=== PATIENT | male | born 1975 | race Caucasian/White ===

== ENCOUNTER 2016-08-31 19:28 | Emergency (ER) | payer MEDICAID ==
[2016-08-31] MEDS ORDERED: NS 1,000 ML IV ONE ×2 (20:12→21:34)
[2016-08-31 20:41] LABS: ADD DIFF? NO; ADD MORPH? NO; ADD SCAN? NO; ATYPICAL LYMPHOCYTE FLAG 10 (0-99); FRAGMENT RBC FLAG 0 (0-99); HEMATOCRIT 41.5 % (40.0-51.0); HEMOGLOBIN 13.9 g/dL (13.7-17.5); LEFT SHIFT FLG 0 (0-99); LIPEMIA HEMOLYSIS FLAG 80 (0-99); MEAN CELL HEMOGLOBIN 33.6 pg (27.9-34.1); MEAN CELL HEMOGLOBIN CONCENTR. 33.5 g/dL (32.4-36.7); MEAN CELL VOLUME 100.2 fL (81.5-99.8); PLATELET CLUMPS FLAG 0 (0-99); PLATELET COUNT 146 10^3/uL (150-400); RED BLOOD CELL COUNT 4.14 10^6/uL (4.40-6.38); RED CELL DISTRIBUTION WIDTH 14.1 % (11.5-15.2)
[2016-08-31 20:50] LABS: ANION GAP 16 mEq/L (8-16); CALCIUM 9.2 mg/dL (8.5-10.4); CARBON DIOXIDE 28 mEq/l (22-31); CHLORIDE 99 mEq/L (97-110); CREATININE 0.7 mg/dL (0.7-1.3); GLOMERULAR FILTRATION RATE > 60; GLUCOSE 107 mg/dL (70-100); POTASSIUM 3.9 mEq/L (3.5-5.2); SALICYLATE < 1.0 mg/dL (2.0-20.0); SODIUM 143 mEq/L (134-144)
[2016-08-31 20:58] LABS: ETHANOL SERUM 362 mg/dL (0-10)
--- NOTE | 2016-08-31 21:00 | EDPHY ---
H & P Stated Complaint: M1, DRINKING "TO KILL THE PAIN" Source: Patient - Personal History Current Tetanus/Diphtheria Vaccine: Yes - Medical/Surgical History Hx Asthma: No Hx Chronic Respiratory Disease: No Hx Diabetes: No Hx Cardiac Disease: No Hx Renal Disease: No Hx Cirrhosis: No Hx Alcoholism: Yes Hx HIV/AIDS: No Hx Splenectomy or Spleen Trauma: No Other PMH: Alcoholism,ptsd, bipolar, pancreatitis, ETOH abuse. - Social History Smoking Status: Current every day smoker HPI/ROS: CHIEF COMPLAINT: Suicidal ideation, foot pain HISTORY OF PRESENT ILLNESS: patient admits to wanting to kill himself by rounding himself in the river. He primarily attributes this due to increasing depression because of the loss of his sister this week. He reports when he drown himself Or drink himself to the point that he is . a marketing pr intern visit was with him contacted police to do this. They evaluated him, completed an M1 form and transported here to the emergency department. His secondary complaint is bilateral foot pain over multiple toes. The patient is homeless and does not have anywhere to stay. Due to that he has poor hygiene and increasing pain and parts of his feet as well as numbness in his toes. He has no other associated complaints. He does not provide any modifying factors for this. Denies any previous suicide attempts were REVIEW OF SYSTEMS: Ten systems reviewed and are negative unless otherwise noted in the HPI EXAMINATION General Appearance: Alert, no distress, unkempt, poor hygiene Head: normocephalic, atraumatic Eyes: Pupils equal and round, no conjunctival pallor, but mild injection ENT, Mouth: Mucous membranes moist Neck: Normal inspection, supple, non-tender Respiratory: scattered rhonchi Cardiovascular: Regular rate and rhythm Gastrointestinal: Abdomen is soft and nontender Back: non-tender, no bony abnormalities Neurological: A&O, nonfocal, cranial nerves 2-12 grossly intact Skin: Warm and intact but unkempt. Feet are very dirty but no area of necrosis Extremities: range of motion is intact. No lesions. There are chronic changes as noted above. Decreased sensation in the toes but not the feet. Strength is 5/5 in both ankles. Psychiatric: Mood and affect normal DIFFERENTIAL DIAGNOSES: Suicidal ideation, psychosis, but major depression, acute depression with episode, cellulitis, frostbite MDM: 02:00 patient is homeless and has experienced a loss earlier this week with a family member. This has likely presumed into an episode of suicidal ideation. He did admit to wanting to kill himself by Drowning. is not needed attempted insert today. He has been very calm and cooperative during his stay here in the emergency department. His labs are within acceptable limits. Upon initial evaluation, I did feel that was a possible area of necrosis of the feet. However after very good cleaning of the area, this tissue was found to be debris. His feet are very well in appearance following the cleansing. There is no necrosis. his labs are acceptable for clearance, but he has yet to be evaluated by mental health at this time. Thus at this time the care the patient will be assumed by Dr. Trujillo. please see her note for final disposition and care SUPERVISION:Patient was evaluated in conjunction with the supervising physician. Please see their note for details. (Omer Ellis) Constitutional: Initial Vital Signs Temperature (C) 97.2 F 08/31/16 19:32 Heart Rate 104 H 08/31/16 19:32 Respiratory Rate 18 08/31/16 19:32 Blood Pressure 118/83 H 08/31/16 19:32 O2 Sat (%) 95 08/31/16 19:32 O2 Delivery Mode Room Air Allergies/Adverse Reactions: No Known Allergies Allergy (Unverified 08/31/16 19:31) Home Medications: Medication Instructions Recorded Ibuprofen [Motrin (*)] 200 mg PO Q8 #0 tab 08/01/16 Ativan 08/31/16 Medical Decision Making ED Course/Re-evaluation: 6:50 a.m.- The patient has remained stable during my shift. He did receive 1 mg of Ativan for mild tremor. He is currently awaiting psychiatric evaluation. (Steffany Trujillo) 700: The patient is signed out to me at change of shift by Dr. Trujillo. The patient is stable at sign out. I rechecked the patient while here. Patient was stable during his stay. 1035: I discussed the case with Psychiatric Services. They feel the patient is safe for discharge. He is not endorsing suicidal ideation at this time. Dr. Weaver recommends I left a hold. Patient was given warnings prior to leaving. He will return with worsening symptoms. (Sovndal,Zoë S) - Data Points Laboratory Results: Laboratory Results 08/31/16 20:28 08/31/16 20:28 Medications Given: Discontinued Medications Chlordiazepoxide HCl (Librium) 25 mg PO EDNOW ONE Stop: 09/01/16 08:40 Last Admin: 09/01/16 08:45 Dose: 25 mg Sodium Chloride (Ns) 1,000 mls @ 0 mls/hr IV ONCE ONE PRN Reason: Wide Open Stop: 08/31/16 20:13 Last Admin: 08/31/16 20:37 Dose: 1,000 mls Sodium Chloride (Ns) 1,000 mls @ 0 mls/hr IV ONCE ONE PRN Reason: Wide Open Stop: 08/31/16 21:35 Last Admin: 08/31/16 23:05 Dose: 1,000 mls Lorazepam (Ativan) 1 mg PO EDNOW ONE Stop: 09/01/16 06:14 Last Admin: 09/01/16 06:20 Dose: 1 mg Departure - Departure Disposition: Home, Routine, Self-Care Clinical Impression: Suicidal ideation, Frostbite of both great toes, Alcoholism Condition: Good Instructions: Depression (ED), Alcohol Intoxication (ED), Suicide Prevention for Adults (ED) Additional Instructions: FOLLOWUP PER MH'S DISCUSSION. IF YOU HAVE ANY THOUGHTS OF HURTING/KILLING YOURSELF PLEASE COME BACK TO THE EMERGENCY DEPARTMENT IMMEDIATELY OR SEEK HELP ELSEWHERE. Referrals: [facility] [Outside] - As per Instructions
[2016-09-01] MEDS ORDERED: LORazepam 1 MG TAB PO ONE (06:13)
[2016-09-01 08:31] VITALS: RESP 14; TEMP 98.2; O2SAT 94
[2016-09-01] MEDS ORDERED: chlordiazePOXIDE 25 MG CAP PO ONE (08:39)
[2016-09-01 11:01] VITALS: BP 126/89; PULSE 96
== END 2016-09-01 11:00 | disposition home or self-care (01) ==
DX: R45.851 Suicidal ideations (principal); T33.831A Superficial frostbite of right toe(s), initial encounter; T33.832A Superficial frostbite of left toe(s), initial encounter; F10.20 Alcohol dependence, uncomplicated; F17.200 Nicotine dependence, unspecified, uncomplicated; X58.XXXA Exposure to other specified factors, initial encounter
CPT/HCPCS: 80305; G0480

== ENCOUNTER 2016-09-18 04:15 | Emergency (ER) | payer MEDICAID ==
[2016-09-18] MEDS ORDERED: ONDANSETRON 4 MG/2 ML VIAL IVP ONE (04:21)
[2016-09-18] MEDS ORDERED: NS 1,000 ML IV ONE (04:21)
[2016-09-18] MEDS ORDERED: LORazepam 2 MG/ML INJ IVP ONE (04:22)
--- NOTE | 2016-09-18 04:28 | EDPHY ---
HPI/HX/ROS/PE/MDM Narrative: Chief complaint: Chest pain/abdominal pain HPI: 40-year-old homeless male with a history of chronic alcohol abuse and pancreatitis in the past woke at 3 o'clock this morning in an alleyway with upper abdominal lower left chest pain. Patient states that he has had a cough productive of yellowish sputum for the last 2 weeks. States that his pain is a little bit worse with cough and breathing. No fevers or chills. Some nausea no vomiting. No diarrhea. Denies dark black bowel movements that he is aware of. Pain has been constant. He does have a history of alcohol withdrawal seizures, states his last drink was at 530 yesterday afternoon. His pain is described as a constant burning, 02/24. There are no aggravating or alleviating factors. Does not smoke. Denies family history of coronary disease. ROS: 10 point Review of Systems is negative except as noted in the HPI. Physical exam: Gen: Awake, Alert, very tremulous HEENT: Nose: no rhinorrhea Eyes: PERRLA, EOMI Mouth: Moist mucosa Neck: Supple, no JVD Chest: nontender, lungs clear to auscultation Heart: S1, S2 normal, no murmur Abd: epigastric and left upper quadrant tenderness to palpation reproducing presenting complaint, voluntary guarding Back: no CVA tenderness, no midline tenderness Ext: no edema, non-tender Skin: no rash Neuro: CN II-XII intact, Sensation grossly intact, Strength 5/5 in bilateral upper and lower extremities ED Course: 40-year-old male with lower chest and upper abdominal pain with tenderness. History of pancreatitis. Oxygen saturations are 100%. Lung sounds are clear. Will check a ECG, troponin, lipase, LFTs, and chemistry. Will treat with Ativan 2 mg now, 4 mg of morphine, Zofran and IV fluids. EC sinus rhythm with a rate of 72 there is artifact secondary to his tremors. No acute ST or T-wave changes. Interpretation normal ECG. Patient is improved after IV hydration and medications. His ECG is normal. Re- examination shows upper abdominal tenderness. His lipase is normal. His CBC is normal. He has mild elevation in his transaminases which is consistent with his chronic alcohol ingestion. He has gotten relief with a GI cocktail. Symptoms are more consistent with alcoholic gastritis. Will discharge him with prescription for a PPI and referral to [facility] for follow-up. He has been encouraged to decrease his alcohol consumption. - Data Points Laboratory Results: Laboratory Results 09/18/16 04:35 09/18/16 04:35 09/18/16 04:35 WBC 3.99 10^3/uL (3.80-9.50) RBC 3.77 L 10^6/uL (4.40-6.38) Hgb 12.8 L g/dL (13.7-17.5) Hct 36.5 L % (40.0-51.0) MCV 96.8 fL (81.5-99.8) MCH 34.0 pg (27.9-34.1) MCHC 35.1 g/dL (32.4-36.7) RDW 15.0 % (11.5-15.2) Plt Count 54 L 10^3/uL (150-400) MPV 11.1 fL (8.7-11.7) Neut % (Auto) 33.0 L % (39.3-74.2) Lymph % (Auto) 57.9 H % (15.0-45.0) [place] % (Auto) 7.3 % (4.5-13.0) Eos % (Auto) 1.0 % (0.6-7.6) Baso % (Auto) 0.8 % (0.3-1.7) Nucleat RBC Rel Count 0.0 % (0.0-0.2) Absolute Neuts (auto) 1.32 L 10^3/uL (1.70-6.50) Absolute Lymphs (auto) 2.31 10^3/uL (1.00-3.00) Absolute Monos (auto) 0.29 L 10^3/uL (0.30-0.80) Absolute Eos (auto) 0.04 10^3/uL (0.03-0.40) Absolute Basos (auto) 0.03 10^3/uL (0.02-0.10) Absolute Nucleated RBC 0.00 10^3/uL (0-0.01) Immature Gran % 0.0 % (0.0-1.1) Immature Gran # 0.00 10^3/uL (0.00-0.10) Sodium 142 mEq/L (134-144) Potassium 3.4 L mEq/L (3.5-5.2) Chloride 101 mEq/L (97-110) Carbon Dioxide 23 mEq/l (22-31) Anion Gap 18 mEq/L (8-16) BUN 9 mg/dL (7-23) Creatinine 0.6 L mg/dL (0.7-1.3) Estimated GFR > 60 Glucose 74 mg/dL (70-100) Calcium 8.7 mg/dL (8.5-10.4) Total Bilirubin 1.8 H mg/dL (0.1-1.4) Conjugated Bilirubin 0.8 H mg/dL (0.0-0.5) Unconjugated Bilirubin 1.0 mg/dL (0.0-1.1) AST 249 H IU/L (17-59) ALT 94 H IU/L (21-72) Alkaline Phosphatase 174 H IU/L (38-126) Troponin I < 0.012 ng/mL (0-0.034) Total Protein 7.4 g/dL (6.3-8.2) Albumin 3.8 g/dL (3.5-5.0) Lipase 64.0 IU/L (23-300) Medications Given: Discontinued Medications Sodium Chloride (Ns) 1,000 mls @ 0 mls/hr IV ONCE ONE PRN Reason: Wide Open Stop: 09/18/16 04:22 Last Admin: 09/18/16 04:30 Dose: 1,000 mls Lorazepam (Ativan Injection) 2 mg IVP EDNOW ONE Stop: 09/18/16 04:23 Last Admin: 09/18/16 04:30 Dose: 2 mg Morphine Sulfate (Morphine) 4 mg IVP ONCE ONE Stop: 09/18/16 04:22 Last Admin: 09/18/16 04:30 Dose: 4 mg Ondansetron HCl (Zofran) 4 mg IVP EDNOW ONE Stop: 09/18/16 04:22 Last Admin: 09/18/16 04:54 Dose: 4 mg General Time Seen by Provider: 09/18/16 04:23 Initial Vital Signs: Initial Vital Signs Temperature (C) 36.7 C 09/18/16 04:46 Heart Rate 78 09/18/16 04:46 Respiratory Rate 20 09/18/16 04:46 Blood Pressure 132/73 H 09/18/16 04:46 O2 Sat (%) 100 09/18/16 04:46 O2 Delivery Mode Room Air O2 (L/minute) 2 Allergies/Adverse Reactions: No Known Allergies Allergy (Unverified 09/18/16 04:46) Home Medications: Medication Instructions Recorded Omeprazole 20 mg PO DAILY #30 capsule. 09/18/16 Departure - Departure Disposition: Home, Routine, Self-Care Clinical Impression: Gastritis Condition: Good Instructions: Gastritis (ED) Additional Instructions: Please try to decrease your alcohol consumption. Follow up with [facility] in 2-3 days for re-evaluation. Return to the emergency depart for increasing pain, nausea, vomiting, shortness of breath, fevers, chills, or any other concerns. Referrals: NONE *PRIMARY CARE P,. [Primary Care Provider] - As per Instructions [facility] [Outside] - As per Instructions Prescriptions: Omeprazole 20 mg PO DAILY #30 capsule.
[2016-09-18 04:46] LABS: ADD DIFF? NO; ADD MORPH? NO; ADD SCAN? NO; ATYPICAL LYMPHOCYTE FLAG 10 (0-99); FRAGMENT RBC FLAG 0 (0-99); HEMATOCRIT 36.5 % (40.0-51.0); HEMOGLOBIN 12.8 g/dL (13.7-17.5); LEFT SHIFT FLG 0 (0-99); LIPEMIA HEMOLYSIS FLAG 90 (0-99); MEAN CELL HEMOGLOBIN CONCENTR. 35.1 g/dL (32.4-36.7); MEAN CELL VOLUME 96.8 fL (81.5-99.8); MEAN PLATELET VOLUME 11.1 fL (8.7-11.7); PLATELET CLUMPS FLAG 10 (0-99); PLATELET COUNT 54 10^3/uL (150-400); RED BLOOD CELL COUNT 3.77 10^6/uL (4.40-6.38)
--- NOTE | 2016-09-18 04:51 | CPEKG ---
Heart Rate: 72 RR Interval: 833 QRSD Interval: 96 QT Interval: 428 QTC Interval: 469 QRS [place]: 54 T Wave [place]: 46 EKG Severity - OTHERWISE NORMAL ECG - EKG Impression: SINUS RHYTHM EKG Impression: artifact present Electronically Signed By: Jony Corcoran 18-Sep-2016 05:47:16
[2016-09-18 04:53] VITALS: O2SAT 96
[2016-09-18 04:58] LABS: ALANINE AMINOTRANSFERASE 94 IU/L (21-72); ALBUMIN 3.8 g/dL (3.5-5.0); ALKALINE PHOSPHATASE 174 IU/L (38-126); ANION GAP 18 mEq/L (8-16); ASPARTATE AMINOTRANSFERASE 249 IU/L (17-59); BILIRUBIN,TOTAL 1.8 mg/dL (0.1-1.4); BILIRUBIN-CONJUGATED 0.8 mg/dL (0.0-0.5); CALCIUM 8.7 mg/dL (8.5-10.4); CARBON DIOXIDE 23 mEq/l (22-31); CHLORIDE 101 mEq/L (97-110); CREATININE 0.6 mg/dL (0.7-1.3); GLOMERULAR FILTRATION RATE > 60; GLUCOSE 74 mg/dL (70-100); POTASSIUM 3.4 mEq/L (3.5-5.2); SODIUM 142 mEq/L (134-144); TOTAL PROTEIN 7.4 g/dL (6.3-8.2)
[2016-09-18] MEDS ORDERED: MAALOX/LIDO/HYOSC GI COCKTAIL 55 ML BOTTLE PO ONE (05:01)
[2016-09-18] MEDS ORDERED: MAALOX/LIDO/HYOSC GI COCKTAIL 55 ML BOTTLE ONE (05:02)
[2016-09-18 05:09] LABS: TROPONIN I < 0.012 ng/mL (0-0.034)
[2016-09-18] MEDS ORDERED: PANTOPRAZOLE SODIUM 40 MG TAB PO ONE (05:18)
[2016-09-18 05:46] VITALS: BP 118/67; PULSE 87; RESP 16; TEMP 98.6
== END 2016-09-18 06:14 | disposition home or self-care (01) ==
LOC: EDUNIT#
DX: K29.70 Gastritis, unspecified, without bleeding (principal)
CPT/HCPCS: 96374; J2405

== ENCOUNTER 2016-09-23 16:21 | Inpatient (IN) | payer MEDICAID ==
[2016-09-23] MEDS ORDERED: ACETAMINOPHEN 325 MG TAB PO ONE (16:40)
--- NOTE | 2016-09-23 16:41 | EDPHY ---
H & P Time Seen by Provider: 09/23/16 17:00 HPI/ROS: HPI: 40-year-old male well known to the emergency department presents to emergency department on an M1 hold brought in by PD with chief concern suicidal ideation. Has been feeling suicidal for 2 days, stating he will borrow a friend 's knife and slit his wrist. He denies homicidal ideation. Denies visual or auditory hallucination. Denies illicit drug use. No fever, chills, dizziness, headache, shortness of breath, chest pain, abdominal pain, nausea, vomiting, diarrhea. Past medical history is notable for pancreatitis, alcoholic hepatitis , alcohol abuse, PTSD, depression, thrombocytopenia, microcytic anemia. Last pint this morning. He is homeless. ROS:10 point review of systems is negative other than as stated in HPI Past Medical/Surgical History: See HPI Social History: Homeless Smoking Status: Current every day smoker Physical Exam: Vital signs stable, reviewed by me General: Awake, alert, calm, cooperative. No acute distress. Head: Normalocephalic. Atraumatic. EENT: PERRLA. EOMI. No pallor or injection. Anicteric. No nystagmus. No injection. TMs intact bilaterally with normal landmarks. No rhinnorhea, nasal passages clear. Oropharynx without redness, exudates, or lesions. Tonsils 2+ bilaterally, no exudates. Neck: Supple, nontender. No lymphadenopathy. Full range of motion. No meningismus. Respiratory: Breathing unlabored. Breath sounds equal bilaterally and clear to auscultation. No adventitious sounds. CV: Chest nontender, atraumatic. Heart rate regular. No murmur, distal pulses 2+ bilaterally. Brisk cap refill all extremities. GI: Abdomen soft, mild right mid abdominal pain. Hepatomegaly. Bowel sounds normoactive and positive x4 quadrants. Neuro: Alert. Oriented x 3. Speech clear. Nonfocal cranial nerves throughout. Sensation intact all extremities. Skin: Skin warm, dry, intact. No rashes, abrasions, or lacerations. Skin turgor normal. Extremities: Full range of motion in all 4 extremities. Strength 5+ all extremities. Mental status: Disheveled, dirty, unkempt Constitutional: Initial Vital Signs Temperature (C) 36.8 C 09/23/16 16:25 Heart Rate 78 09/23/16 16:25 Respiratory Rate 18 09/23/16 16:25 Blood Pressure 130/87 H 09/23/16 16:25 O2 Sat (%) 99 09/23/16 16:25 O2 Delivery Mode Room Air Allergies/Adverse Reactions: No Known Allergies Allergy (Unverified 09/18/16 04:46) Home Medications: Medication Instructions Recorded NK [No Known Home Meds] 09/23/16 Medical Decision Making ED Course/Re-evaluation: Homeless 40-year-old male well known to the emergency department presents with suicidal ideation. States he has had a plan for 2 days to borrow his friends knife and slashed his wrist. Vitals are stable. Last pt this morning. Presently calm and with CIWA of 0. 2100: Breathalyzer 212. Repeat basic metabolic panel after 2 L normal saline shows a potassium 3.0, CO2 16, anion gap 20. Patient given 20 mEq p.o. K. 3rd L normal saline hung. Will recheck metabolic panel afterward. AST 512, ALT 155, Alk Phos 163, lipase 60. Patient will be admitted to the hospitalist service, report given to dr. Souza. CIWA 7. 1 mg IV Ativan given. EKG shows sinus rhythm, rate 93, normal intervals, no axis deviation, no evidence of ischemia. Differential Diagnosis: Differential includes but is not limited to functional and major depression, situational depression, medication side-effect, anxiety, schizophrenia, bipolar , drug or alcohol related, acute psychosis, metabolic derangement, infection - Data Points Laboratory Results: Laboratory Results 09/23/16 16:30 09/23/16 21:13 09/23/16 09/23/16 09/23/16 21:13 17:54 16:30 WBC 5.74 10^3/uL (3.80-9.50) RBC 4.07 L 10^6/uL (4.40-6.38) Hgb 14.0 g/dL (13.7-17.5) Hct 40.7 % (40.0-51.0) MCV 100.0 H fL (81.5-99.8) MCH 34.4 H pg (27.9-34.1) MCHC 34.4 g/dL (32.4-36.7) RDW 16.6 H % (11.5-15.2) Plt Count 68 L 10^3/uL (150-400) MPV 10.2 fL (8.7-11.7) Neut % (Auto) 38.0 L % (39.3-74.2) Lymph % (Auto) 51.2 H % (15.0-45.0) [place] % (Auto) 9.6 % (4.5-13.0) Eos % (Auto) 0.2 L % (0.6-7.6) Baso % (Auto) 0.7 % (0.3-1.7) Nucleat RBC Rel Count 0.3 H % (0.0-0.2) Absolute Neuts (auto) 2.18 10^3/uL (1.70-6.50) Absolute Lymphs (auto) 2.94 10^3/uL (1.00-3.00) Absolute Monos (auto) 0.55 10^3/uL (0.30-0.80) Absolute Eos (auto) 0.01 L 10^3/uL (0.03-0.40) Absolute Basos (auto) 0.04 10^3/uL (0.02-0.10) Absolute Nucleated RBC 0.02 H 10^3/uL (0-0.01) Immature Gran % 0.3 % (0.0-1.1) Immature Gran # 0.02 10^3/uL (0.00-0.10) Sodium 135 mEq/L 135 mEq/L 141 mEq/L (134-144) (134-144) (134-144) Potassium 3.1 L mEq/L 3.0 L mEq/L 3.2 L mEq/L (3.5-5.2) (3.5-5.2) (3.5-5.2) Chloride 99 mEq/L 99 mEq/L 98 mEq/L (97-110) (97-110) (97-110) Carbon Dioxide 16 L mEq/l 16 L mEq/l 12 L mEq/l (22-31) (22-31) (22-31) Anion Gap 20 H mEq/L 20 H mEq/L 31 H mEq/L (8-16) (8-16) (8-16) BUN 7 mg/dL 7 mg/dL 8 mg/dL (7-23) (7-23) (7-23) Creatinine 0.7 mg/dL 0.7 mg/dL 0.8 mg/dL (0.7-1.3) (0.7-1.3) (0.7-1.3) Estimated GFR > 60 > 60 > 60 Glucose 172 H mg/dL 173 H D mg/dL 47 L mg/dL (70-100) (70-100) (70-100) Calcium 7.5 L mg/dL 7.4 L mg/dL 8.5 mg/dL (8.5-10.4) (8.5-10.4) (8.5-10.4) Magnesium Total Bilirubin 1.3 mg/dL (0.1-1.4) Conjugated Bilirubin Unconjugated Bilirubin AST 512 H IU/L (17-59) ALT 155 H IU/L (21-72) Alkaline Phosphatase 163 H IU/L (38-126) Total Protein 5.9 L g/dL (6.3-8.2) Albumin 2.8 L g/dL (3.5-5.0) Lipase Urine Opiates Screen NEGATIVE (NEGATIVE) Urine Barbiturates NEGATIVE (NEGATIVE) Ur Phencyclidine Scrn NEGATIVE (NEGATIVE) Ur Amphetamine Screen NEGATIVE (NEGATIVE) U Benzodiazepines Scrn NON-NEGATIVE H (NEGATIVE) Urine Cocaine Screen NEGATIVE (NEGATIVE) U Marijuana (THC) Screen NON-NEGATIVE H (NEGATIVE) Ethyl Alcohol 307 H mg/dL (0-10) 09/23/16 16:20 WBC RBC Hgb Hct MCV MCH MCHC RDW Plt Count MPV Neut % (Auto) Lymph % (Auto) [place] % (Auto) Eos % (Auto) Baso % (Auto) Nucleat RBC Rel Count Absolute Neuts (auto) Absolute Lymphs (auto) Absolute Monos (auto) Absolute Eos (auto) Absolute Basos (auto) Absolute Nucleated RBC Immature Gran % Immature Gran # Sodium Potassium Chloride Carbon Dioxide Anion Gap BUN Creatinine Estimated GFR Glucose Calcium Magnesium 1.6 mg/dL (1.6-2.3) Total Bilirubin 1.9 H mg/dL (0.1-1.4) Conjugated Bilirubin 1.3 H mg/dL (0.0-0.5) Unconjugated Bilirubin 0.6 mg/dL (0.0-1.1) AST 600 H IU/L (17-59) ALT 192 H IU/L (21-72) Alkaline Phosphatase 246 H IU/L (38-126) Total Protein 7.3 g/dL (6.3-8.2) Albumin 4.0 g/dL (3.5-5.0) Lipase 60.0 IU/L (23-300) Urine Opiates Screen Urine Barbiturates Ur Phencyclidine Scrn Ur Amphetamine Screen U Benzodiazepines Scrn Urine Cocaine Screen U Marijuana (THC) Screen Ethyl Alcohol Medications Given: Discontinued Medications Acetaminophen (Tylenol) 1,000 mg PO EDNOW ONE Stop: 09/23/16 16:41 Last Admin: 09/23/16 16:53 Dose: Not Given Sodium Chloride (Ns) 1,000 mls @ 0 mls/hr IV ONCE ONE PRN Reason: Wide Open Stop: 09/23/16 17:35 Last Admin: 09/23/16 18:59 Dose: 1,000 mls Sodium Chloride (Ns) 1,000 mls @ 0 mls/hr IV ONCE ONE PRN Reason: Wide Open Stop: 09/23/16 17:54 Last Admin: 09/23/16 17:54 Dose: 1,000 mls Sodium Chloride (Ns) 1,000 mls @ 0 mls/hr IV ONCE ONE PRN Reason: Wide Open Stop: 09/23/16 21:09 Last Admin: 09/23/16 21:15 Dose: 1,000 mls Sodium Chloride (Ns) 1,000 mls @ 0 mls/hr IV ONCE ONE PRN Reason: Wide Open Stop: 09/23/16 21:31 Last Admin: 09/24/16 00:00 Dose: Not Given Lorazepam (Ativan Injection) 1 mg IVP EDNOW ONE Stop: 09/23/16 21:31 Last Admin: 09/23/16 21:42 Dose: 1 mg Lorazepam (Ativan Injection) 1 mg IVP EDNOW ONE Stop: 09/23/16 21:41 Last Admin: 09/23/16 22:59 Dose: Not Given Departure - Departure Disposition: [facility] Clinical Impression: Suicidal ideation, Alcoholic hepatitis, Alcoholic ketoacidosis, Alcohol withdrawal
[2016-09-23 17:00] LABS: % IMMATURE GRANULYOCYTES 0.3 % (0.0-1.1); ABSOLUTE IMMATURE GRANULOCYTES 0.02 10^3/uL (0.00-0.10); ABSOLUTE NRBC COUNT 0.02 10^3/uL (0-0.01); ADD DIFF? NO; ADD MORPH? NO; ADD SCAN? NO; ATYPICAL LYMPHOCYTE FLAG 30 (0-99); FRAGMENT RBC FLAG 0 (0-99); HEMATOCRIT 40.7 % (40.0-51.0); LEFT SHIFT FLG 0 (0-99); LIPEMIA HEMOLYSIS FLAG 90 (0-99); MEAN CELL HEMOGLOBIN 34.4 pg (27.9-34.1); MEAN CELL HEMOGLOBIN CONCENTR. 34.4 g/dL (32.4-36.7); MEAN PLATELET VOLUME 10.2 fL (8.7-11.7); NRBC-AUTO% 0.3 % (0.0-0.2); PLATELET CLUMPS FLAG 10 (0-99); PLATELET COUNT 68 10^3/uL (150-400); RED BLOOD CELL COUNT 4.07 10^6/uL (4.40-6.38); RED CELL DISTRIBUTION WIDTH 16.6 % (11.5-15.2)
[2016-09-23 17:21] LABS: ANION GAP 31 mEq/L (8-16); CALCIUM 8.5 mg/dL (8.5-10.4); CARBON DIOXIDE 12 mEq/l (22-31); CHLORIDE 98 mEq/L (97-110); CREATININE 0.8 mg/dL (0.7-1.3); GLOMERULAR FILTRATION RATE > 60; GLUCOSE 47 mg/dL (70-100); POTASSIUM 3.2 mEq/L (3.5-5.2); SODIUM 141 mEq/L (134-144)
[2016-09-23] MEDS ORDERED: NS 1,000 ML IV ONE ×4 (17:34→21:30)
[2016-09-23 17:48] LABS: ETHANOL SERUM 307 mg/dL (0-10)
[2016-09-23] MEDS: POTASSIUM CL 20 MEQ TAB PO SCH (18:59)
[2016-09-23 20:55] LABS: ANION GAP 20 mEq/L (8-16); CALCIUM 7.4 mg/dL (8.5-10.4); CARBON DIOXIDE 16 mEq/l (22-31); CHLORIDE 99 mEq/L (97-110); CREATININE 0.7 mg/dL (0.7-1.3); GLOMERULAR FILTRATION RATE > 60; GLUCOSE 173 mg/dL (70-100); SODIUM 135 mEq/L (134-144)
[2016-09-23 21:27] LABS: ALANINE AMINOTRANSFERASE 155 IU/L (21-72); ALBUMIN 2.8 g/dL (3.5-5.0); ALKALINE PHOSPHATASE 163 IU/L (38-126); ANION GAP 20 mEq/L (8-16); ASPARTATE AMINOTRANSFERASE 512 IU/L (17-59); BILIRUBIN,TOTAL 1.3 mg/dL (0.1-1.4); CALCIUM 7.5 mg/dL (8.5-10.4); CARBON DIOXIDE 16 mEq/l (22-31); CHLORIDE 99 mEq/L (97-110); CREATININE 0.7 mg/dL (0.7-1.3); GLOMERULAR FILTRATION RATE > 60; GLUCOSE 172 mg/dL (70-100); POTASSIUM 3.1 mEq/L (3.5-5.2); SODIUM 135 mEq/L (134-144); TOTAL PROTEIN 5.9 g/dL (6.3-8.2)
[2016-09-23] MEDS ORDERED: LORazepam 2 MG/ML INJ IVP ONE ×2 (21:30→21:40)
[2016-09-23 21:44] LABS: BILIRUBIN,TOTAL 1.9 mg/dL (0.1-1.4); BILIRUBIN-CONJUGATED 1.3 mg/dL (0.0-0.5); BILIRUBIN-UNCONJUGATED 0.6 mg/dL (0.0-1.1); TOTAL PROTEIN 7.3 g/dL (6.3-8.2)
--- NOTE | 2016-09-23 21:45 | CPEKG ---
Heart Rate: 93 RR Interval: 645 P-R Interval: 144 QRSD Interval: 90 QT Interval: 356 QTC Interval: 443 P [place]: 42 QRS [place]: 24 T Wave [place]: 45 EKG Severity - NORMAL ECG - EKG Impression: SINUS RHYTHM Electronically Signed By: Saige Ramires 23-Sep-2016 22:30:27
[2016-09-23] MEDS ORDERED: ONDANSETRON 4 MG/2 ML VIAL IVP PRN (22:44)
[2016-09-23] MEDS ORDERED: ONDANSETRON DISINTEGRATING 4 MG TAB PO PRN (22:44)
[2016-09-23] MEDS ORDERED: MAG HYDROX/AL HYDROX/SIMETH 30 ML UDCUP PO PRN (22:47)
--- NOTE | 2016-09-23 23:02 | PDGENHP ---
History and Physical - Chief Complaint suicidal ideations - History of Present Illness Patient is a 40 yo homeless male with chronic alcohol use, chronic tobacco use, h/o withdrawal seizures, chronic pancreatitis and major depressive disorder who presents to the ED with cc of suicidal ideations. Patient states these thoughts have been present for some time, but have acutely worsened over the past 2 weeks and at this point he describes a plan, although has not acted on this yet. He was brought into the ED by the [facility] for further evaluation. In addition to the above, patient also drinks about 2-4 pints of whiskey daily, only had about 1 pint this morning prior to arrival. He does report some moderate abdominal pain, located band-like across his abdomen, associated with some nausea, but denies any recent vomiting or diarrhea. He also has a cough productive of thick green sputum, present for approximately 2 weeks, not associated with fever, chills or shortness of breath. On arrival to the ED, patient was afebrile and hemodynamically stable. Labs were drawn and revealed thrombocytopenia, electrolyte derangements and elevated LFTs. Given these medical abnormalities, patient was admitted to the hospitalist service for further evaluation and management, with psychiatry to evaluated the patient once he's medically cleared. History Information - Allergies/Home Medication List Allergies/Adverse Reactions: No Known Allergies Allergy (Unverified 09/18/16 04:46) Home Medications: NK [No Known Home Meds] 09/23/16 [Last Taken Unknown] I have personally reviewed and updated: family history, medical history, social history, surgical history - Past Medical History Additional medical history: Alcoholism with history alcohol withdrawal, major depressive disorder, hand cellulitis and abscess April 2016, h/o acute and chronic pancreatitis - Surgical History Additional surgical history: Incision and drainage of the hand in April 2016 - Family History Additional family history: Patient's reports he does not know his family history as he is not emotionally close with any of them - Social History Smoking Status: Current every day smoker (1-2PPD x 30 years) Alcohol Use: Heavy (about 4 pints of whiskey daily) Drug Use: Marijuana, Other (LSD, mushrooms, denies any IV drug use) Additional social history: Homeless Review of Systems ROS: 10pt was reviewed & negative except for what was stated in HPI & below Physical Exam Temp Pulse Resp BP Pulse Ox 36.8 C 78 18 130/87 H 99 09/23/16 16:25 09/23/16 16:25 09/23/16 16:25 09/23/16 16:25 09/23/16 16:25 Constitutional: not in pain, chronically ill appearing, unkempt Eyes: PERRL, anicteric sclera, EOMI, scleral injection Ears, Nose, Mouth, Throat: moist mucous membranes, hearing normal, ears appear normal, no oral mucosal ulcers Cardiovascular: no murmur, rub, or gallop, pulses symmetric bilaterally, tachycardia, No JVD, No edema Peripheral Pulses: 2+: dorsalis-pedis (R), dorsalis-pedis (L) Respiratory: no respiratory distress, no rales or rhonchi, clear to auscultation Gastrointestinal: normoactive bowel sounds, no palpable masses, tenderness (LUQ/ epigastric tenderness to palpation), No hepatosplenomegally, No guarding, No rebound, No distension Genitourinary: no bladder fullness, no bladder tenderness Skin: warm, normal color, no rashes or abrasions, no fluctuance, No mottled Musculoskeletal: full muscle strength, no muscle tenderness, normal joint ROM, no joint effusions Neurologic: AAOx3, sensation intact bilaterally, CN II-XII Intact, other ( distal fine tremor present), No weakness, No numbness Psychiatric: interacting appropriately, not encephalopathic, thought process linear, depressed, suicidal ideation Lab Data & Imaging Review 09/23/16 16:30 09/23/16 21:13 WBC 5.74 10^3/uL (3.80-9.50) 09/23/16 16:30 RBC 4.07 10^6/uL (4.40-6.38) L 09/23/16 16:30 Hgb 14.0 g/dL (13.7-17.5) 09/23/16 16:30 Hct 40.7 % (40.0-51.0) 09/23/16 16:30 MCV 100.0 fL (81.5-99.8) H 09/23/16 16:30 MCH 34.4 pg (27.9-34.1) H 09/23/16 16:30 MCHC 34.4 g/dL (32.4-36.7) 09/23/16 16:30 RDW 16.6 % (11.5-15.2) H 09/23/16 16:30 Plt Count 68 10^3/uL (150-400) L 09/23/16 16:30 MPV 10.2 fL (8.7-11.7) 09/23/16 16:30 Neut % (Auto) 38.0 % (39.3-74.2) L 09/23/16 16:30 Lymph % (Auto) 51.2 % (15.0-45.0) H 09/23/16 16:30 Bullitt % (Auto) 9.6 % (4.5-13.0) 09/23/16 16:30 Eos % (Auto) 0.2 % (0.6-7.6) L 09/23/16 16:30 Baso % (Auto) 0.7 % (0.3-1.7) 09/23/16 16:30 Nucleat RBC Rel Count 0.3 % (0.0-0.2) H 09/23/16 16:30 Absolute Neuts (auto) 2.18 10^3/uL (1.70-6.50) 09/23/16 16:30 Absolute Lymphs (auto) 2.94 10^3/uL (1.00-3.00) 09/23/16 16:30 Absolute Monos (auto) 0.55 10^3/uL (0.30-0.80) 09/23/16 16:30 Absolute Eos (auto) 0.01 10^3/uL (0.03-0.40) L 09/23/16 16:30 Absolute Basos (auto) 0.04 10^3/uL (0.02-0.10) 09/23/16 16:30 Absolute Nucleated RBC 0.02 10^3/uL (0-0.01) H 09/23/16 16:30 Immature Gran % 0.3 % (0.0-1.1) 09/23/16 16:30 Immature Gran # 0.02 10^3/uL (0.00-0.10) 09/23/16 16:30 Sodium 135 mEq/L (134-144) 09/23/16 21:13 Potassium 3.1 mEq/L (3.5-5.2) L 09/23/16 21:13 Chloride 99 mEq/L (97-110) 09/23/16 21:13 Carbon Dioxide 16 mEq/l (22-31) L 09/23/16 21:13 Anion Gap 20 mEq/L (8-16) H 09/23/16 21:13 BUN 7 mg/dL (7-23) 09/23/16 21:13 Creatinine 0.7 mg/dL (0.7-1.3) 09/23/16 21:13 Estimated GFR > 60 09/23/16 21:13 Glucose 172 mg/dL (70-100) H 09/23/16 21:13 Calcium 7.5 mg/dL (8.5-10.4) L 09/23/16 21:13 Magnesium 1.6 mg/dL (1.6-2.3) 09/23/16 16:20 Total Bilirubin 1.3 mg/dL (0.1-1.4) 09/23/16 21:13 Conjugated Bilirubin 1.3 mg/dL (0.0-0.5) H 09/23/16 16:20 Unconjugated Bilirubin 0.6 mg/dL (0.0-1.1) 09/23/16 16:20 AST 512 IU/L (17-59) H 09/23/16 21:13 ALT 155 IU/L (21-72) H 09/23/16 21:13 Alkaline Phosphatase 163 IU/L (38-126) H 09/23/16 21:13 Total Protein 5.9 g/dL (6.3-8.2) L 09/23/16 21:13 Albumin 2.8 g/dL (3.5-5.0) L 09/23/16 21:13 Lipase 60.0 IU/L (23-300) 09/23/16 16:20 Urine Opiates Screen NEGATIVE (NEGATIVE) 09/23/16 16:30 Urine Barbiturates NEGATIVE (NEGATIVE) 09/23/16 16:30 Ur Phencyclidine Scrn NEGATIVE (NEGATIVE) 09/23/16 16:30 Ur Amphetamine Screen NEGATIVE (NEGATIVE) 09/23/16 16:30 U Benzodiazepines Scrn NON-NEGATIVE (NEGATIVE) H 09/23/16 16:30 Urine Cocaine Screen NEGATIVE (NEGATIVE) 09/23/16 16:30 U Marijuana (THC) Screen NON-NEGATIVE (NEGATIVE) H 09/23/16 16:30 Ethyl Alcohol 307 mg/dL (0-10) H 09/23/16 16:30 Visualized and Interpreted Chest x-ray results: Yes Chest X-Ray results: no infiltrate, normal, other (pulmonary nodule, stable since 05/2016) Visualized and Interpreted EKG results: Yes EKG Interpretation: Positive for: normal sinsus rhythm (normal intervals, no st/ t wave changes) Assessment & Plan Assessment: Patient is a 40 yo homeless M with chronic alcohol, tobacco and drug use as well as major depressive disorder who was brought to the ED after expressing suicidal ideations. ED work up also revealed acute alcohol withdrawal and alcoholic hepatitis. Plan: # acute alcoholic hepatitis LFTs are above baseline, however bilirubins and lipase are wnl. Patient is tolerating po well at this time, without vomiting or diarrhea, and repeat LFTs in ED had downtrended. Will cont supportive management with IVF hydration, treatment of acute withdrawal and symptom control. - trend LFTs, check - check abdominal US - IVF hydration # alcoholic ketoacidosis Patient with an anion gap metabolic acidosis, presumed to be due to alcoholic ketoacidosis. Given aggressive IVF hydration in the ED (3L), will cont maintenance fluids, given PO diet and monitor BMP. Will also check lactic acid. # acute alcohol withdrawal Patient describes a significant amount of daily alcohol consumption and on exam does have early signs of acute withdrawal. He reports a history of withdrawal seizures also. - CIWA with ativan prn per protocol - Thiamine/folate/MVN - seizure precautions # acute suicidal ideations Psychiatry notified of patient's SI, however, given acute medical issues described above, will defer their evaluation until cleared medically. Will continue M1 hold with continuous 1:1 observation. # thrombocytopenia Likely related to chronic alcohol use and liver dysfunction. No obvious signs of bleeding at present, will cont to monitor plts and h/h. Will give PPI. # pulmonary nodule CXR reports reveals a single pulmonary nodule, stable in appearance from 2015 CXR. Will need repeat imaging again at 6, 18 months to monitor size over 2 year period. # dispo: admit to inpt service for > 2 MN stay for treatment of multiple medical conditions described above # gen regular diet DVT ppx: SCDs Full code
[2016-09-23] MEDS ORDERED: PROTOCOL MAGNESIUM 1 DOSE IV PRN (23:18)
[2016-09-23] MEDS ORDERED: PROTOCOL POTASSIUM 1 DOSE MISC PRN (23:18)
--- NOTE | 2016-09-23 23:29 | DX ---
Chest, PA and Lateral History: Cough, possible pneumonia Comparison: July 24, 2016 and May 26, 2016 Findings: There is chronic or recurrent bronchial wall thickening. A right arm PICC line has been re moved. Lungs clear, without infiltrate or consolidation. Heart size and pulmonary vascularity are nor mal. There is no pleural effusion mass or adenopathy. A small nodule overlying the mid thoracic spine is stable since May 2016 and may represent a calcified granuloma. Impression: 1. Airways disease, chronic or recurrent. No pneumonia. 2. Stable small posterior nodule x5 months. This can be followed on chest x-ray in 6 months and 18 mo nths to ensure continued stability over a two-year cycle. Results discussed with Dr. Corcoran at 1127 p.m.
[2016-09-24 03:38] LABS: % IMMATURE GRANULYOCYTES 0.3 % (0.0-1.1); ABSOLUTE IMMATURE GRANULOCYTES 0.01 10^3/uL (0.00-0.10); ADD DIFF? NO; ADD MORPH? NO; ADD SCAN? NO; ATYPICAL LYMPHOCYTE FLAG 50 (0-99); FRAGMENT RBC FLAG 0 (0-99); HEMATOCRIT 28.8 % (40.0-51.0); LEFT SHIFT FLG 0 (0-99); LIPEMIA HEMOLYSIS FLAG 90 (0-99); MEAN CELL HEMOGLOBIN 33.8 pg (27.9-34.1); MEAN CELL HEMOGLOBIN CONCENTR. 34.7 g/dL (32.4-36.7); MEAN CELL VOLUME 97.3 fL (81.5-99.8); MEAN PLATELET VOLUME 10.7 fL (8.7-11.7); PLATELET CLUMPS FLAG 10 (0-99); RED BLOOD CELL COUNT 2.96 10^6/uL (4.40-6.38); RED CELL DISTRIBUTION WIDTH 16.5 % (11.5-15.2)
[2016-09-24 03:40] LABS: PLATELET COUNT 37 10^3/uL (150-400)
[2016-09-24 03:47] LABS: INR 1.15 (0.83-1.16); PROTIME(PATIENT) 14.7 SEC (12.0-15.0)
[2016-09-24 03:48] LABS: APTT 31.1 SEC (23.0-38.0)
[2016-09-24 03:50] LABS: ALANINE AMINOTRANSFERASE 169 IU/L (21-72); ALBUMIN 2.8 g/dL (3.5-5.0); ALKALINE PHOSPHATASE 194 IU/L (38-126); ANION GAP 12 mEq/L (8-16); ASPARTATE AMINOTRANSFERASE 611 IU/L (17-59); BILIRUBIN,TOTAL 1.1 mg/dL (0.1-1.4); CALCIUM 7.9 mg/dL (8.5-10.4); CARBON DIOXIDE 22 mEq/l (22-31); CHLORIDE 99 mEq/L (97-110); CREATININE 0.6 mg/dL (0.7-1.3); GLOMERULAR FILTRATION RATE > 60; GLUCOSE 139 mg/dL (70-100); MAGNESIUM 1.1 mg/dL (1.6-2.3); POTASSIUM 3.3 mEq/L (3.5-5.2); SODIUM 133 mEq/L (134-144); TOTAL PROTEIN 5.7 g/dL (6.3-8.2)
[2016-09-24 04:05] LABS: PLATELET ESTIMATE DECREASED (ADEQ)
[2016-09-24] MEDS: LORazepam 2 MG/ML INJ IVP PRN ×5 (05:19→20:48)
[2016-09-24] MEDS: THIAMINE HCL 100 MG TAB PO SCH (08:18)
[2016-09-24] MEDS: PANTOPRAZOLE SODIUM 40 MG TAB PO SCH (08:18)
[2016-09-24] MEDS: POTASSIUM CL 20 MEQ TAB PO SCH (08:18)
[2016-09-24] MEDS: FOLIC ACID 1 MG TAB PO SCH (08:18)
[2016-09-24] MEDS: MULTIVITAMINS 1 EACH TAB PO SCH (08:18)
--- NOTE | 2016-09-24 08:49 | CPEKG ---
Heart Rate: 84 RR Interval: 714 P-R Interval: 148 QRSD Interval: 86 QT Interval: 392 QTC Interval: 464 P Graham: 54 QRS Graham: 34 T Wave Graham: 53 EKG Severity - NORMAL ECG - EKG Impression: SINUS RHYTHM Electronically Signed By: Rusty Garcia 24-Sep-2016 13:14:23
[2016-09-24] MEDS ORDERED: MAGNESIUM SULF 2 GM/WATER 50 ML IV ONE (08:59)
[2016-09-24] MEDS: NICOTINE 14 MG/24 HR PATCH TD SCH ×2 (09:16)
[2016-09-24] MEDS ORDERED: PROTOCOL K PHOSPHATE 1 DOSE IV PRN (10:29)
[2016-09-24] MEDS ORDERED: PROTOCOL CALCIUM 1 DOSE IV PRN (10:29)
--- NOTE | 2016-09-24 10:46 | US ---
Complete Abdominal Sonogram 9:39 a.m. Indication: Inpatient with chronic pancreatitis and thrombocytopenia. EtOH abuse. Comparison: CT abdomen and pelvis dated July 31, 2016. Findings: The enlarged liver, measuring 23 cm in the midaxillary line, has increased echogenicity and heterogeneous echotexture. Minimal focal fatty sparing is present adjacent the gallbladder. No intra hepatic biliary dilation. Enlarged lateral segment left lobe and caudate lobe suggests underlying chr onic liver disease. The gallbladder has equivocal wall thickening. No intraluminal stones, sludge, wall thickening or son ographic Lindo sign. Common bile duct is normal caliber (4 mm). Portal vein is patent. The inferior vena cava is normal caliber. The abdominal aorta is normal calibe r. The cortices of the kidneys have mild increased echogenicity relative to the pyramids. No hydronephro sis or shadowing renal calculi. The right kidney measures 12 cm in length x 5.4 x 5.4 cm axially. The left kidney measures 13.2 cm in length x 4.7 x 4.6 cm axially. No free fluid or peripancreatic fluid collection. Majority of the pancreas is obscured by bowel gas. The spleen is enlarged measuring 14 cm craniocaudal. Impression: 1. Hepatomegaly. Increased echogenicity is likely due to combination of hepatic steatosis and hepatit is. 2. No biliary dilation. 3. Equivocal gallbladder wall thickening may be secondary to regional inflammation or hypoalbuminemia . 4. No gallstones or biliary obstruction. 5. No ascites. Patent portal vein. 6. Mild splenomegaly likely manifestation of portal venous hypertension.
[2016-09-24] MEDS ORDERED: K PHOS 15 MMOL in D5W 250 ML IV ONE (12:00)
[2016-09-24 12:01] LABS: COLOR YELLOW; LEUKOCYTE ESTERASE,URINE NEGATIVE (NEGATIVE); NITRITE,URINE NEGATIVE (NEGATIVE)
[2016-09-24] MEDS: LORazepam 1 MG TAB PO SCH ×2 (12:26→18:15)
[2016-09-24 14:14] LABS: HEMATOCRIT 32.1 % (40.0-51.0); HEMOGLOBIN 11.2 g/dL (13.7-17.5); LIPEMIA HEMOLYSIS FLAG 90 (0-99); MEAN CELL HEMOGLOBIN 33.5 pg (27.9-34.1); MEAN CELL HEMOGLOBIN CONCENTR. 34.9 g/dL (32.4-36.7); MEAN CELL VOLUME 96.1 fL (81.5-99.8); PLATELET CLUMPS FLAG 40 (0-99); RED BLOOD CELL COUNT 3.34 10^6/uL (4.40-6.38); RED CELL DISTRIBUTION WIDTH 16.7 % (11.5-15.2)
[2016-09-24 14:15] LABS: PLATELET COUNT 41 10^3/uL (150-400)
--- NOTE | 2016-09-24 14:32 | HOSPPROG ---
Hospitalist Progress Note Assessment/Plan: 40 yo M with pmh of chronic etoh abuse and prior DTs and etoh w/d seizures admitted with SI/etoh w/d # Suicidal ideation: with hx of depression and patient with a plan for how to kill himself on arrival. He required medical admission given etoh w/d and alcoholic hepatitis. Will need TLC eval prior to dc once medically cleared # etoh abuse and w/d: with CIWA of 18 this am, continue prn ativan. continue mvi /thiamine/folate. # acute alcoholic hepatitis: with normal coags and low discriminant function, will continue to trend but already improving # anemia: has had drop in h/h that is likely dilutional, no e/o bleeding, will trend # thrombocytopenia: chronic and in the setting of BM suppression due to chronic etoh abuse and acute alc hep, has been chronically low but slightly lower than baseline currently. Will continue trending, again, no e/o bleeding. # agma: resolved post IVF, related to etoh ketoacidosis # hypomagnesemia/hypophosphatemia/hypokalemia: electrolyte protocol and will replete as needed, due to poor po intake in the setting of chronic etoh abuse # pulmonary nodule: small and stable over 5 months, will need repeat imaging in 6 then 18 months # dispo: IP status, will need > 48 hours stay for eval/mgmt of above given severe etoh withdrawal at high risk for DTs/seizure requiring ICU care Patient new to my care. Old records reviewed and summarized as above. Care plan reviewed with pulmonary and multidisciplinary care team on rounds. Subjective: no significant overnight events, patient is awake but feeling agitated and anxious, no pain or other issues Objective: Vital Signs Temp Pulse Resp BP Pulse Ox 36.8 C 100 20 108/61 95 09/24/16 12:29 09/24/16 12:00 09/24/16 12:00 09/24/16 12:00 09/24/16 12:00 Laboratory Results 09/24/16 14:10 09/24/16 03:15 09/23/16 09/24/16 09/25/16 05:59 05:59 05:59 Intake Total 3810 Balance 3810 PT 14.7 SEC (12.0-15.0) 09/24/16 03:15 INR 1.15 (0.83-1.16) 09/24/16 03:15 awake alert anxious anicteric op clear poor dentition regular rate, tachy, no mrg cta b soft nt nd no cce warm dry well perfused oriented appropriate ICD10 Worksheet Patient Problems: Problems Problem Status Diagnosed Alcohol withdrawal Acute Alcoholic hepatitis Acute Alcoholic ketoacidosis Acute Cellulitis and abscess of hand Acute Suicidal ideation Acute Alcohol withdrawal seizure Acute Metabolic acidosis Acute Pancreatitis Acute
[2016-09-24] MEDS ORDERED: FLU VACC QS 2016-17(3-64YR)/PF 0.5 ML SYR (FLUARIX QUAD) IM ONE (15:00)
[2016-09-24 15:21] LABS: PLATELET ESTIMATE DECREASED (ADEQ)
[2016-09-24] MEDS ORDERED: PNEUMOCOCCAL 0.5ML VACCINE VIAL IM ONE (15:30)
[2016-09-24 18:47] LABS: POTASSIUM 3.7 mEq/L (3.5-5.2)
[2016-09-24] MEDS ORDERED: POTASSIUM CL 10 MEQ TAB PO ONE (20:22)
[2016-09-24] MEDS: NS 1,000 ML IV SCH (20:51)
[2016-09-25] MEDS: LORazepam 1 MG TAB PO SCH ×5 (00:11→23:56)
[2016-09-25 02:31] LABS: % IMMATURE GRANULYOCYTES 0.2 % (0.0-1.1); ABSOLUTE IMMATURE GRANULOCYTES 0.01 10^3/uL (0.00-0.10); ADD DIFF? NO; ADD MORPH? NO; ADD SCAN? NO; ATYPICAL LYMPHOCYTE FLAG 40 (0-99); FRAGMENT RBC FLAG 0 (0-99); HEMATOCRIT 33.5 % (40.0-51.0); HEMOGLOBIN 11.4 g/dL (13.7-17.5); IONIZED CALCIUM 1.04 MMOL/L (1.12-1.30); LEFT SHIFT FLG 20 (0-99); LIPEMIA HEMOLYSIS FLAG 90 (0-99); MEAN CELL HEMOGLOBIN 32.9 pg (27.9-34.1); MEAN CELL VOLUME 96.8 fL (81.5-99.8); MEAN PLATELET VOLUME 9.7 fL (8.7-11.7); PLATELET CLUMPS FLAG 20 (0-99); RED BLOOD CELL COUNT 3.46 10^6/uL (4.40-6.38); RED CELL DISTRIBUTION WIDTH 16.8 % (11.5-15.2)
[2016-09-25 02:37] LABS: PLATELET COUNT 36 10^3/uL (150-400)
[2016-09-25 03:02] LABS: ALANINE AMINOTRANSFERASE 196 IU/L (21-72); ALKALINE PHOSPHATASE 287 IU/L (38-126); ANION GAP 8 mEq/L (8-16); ASPARTATE AMINOTRANSFERASE 702 IU/L (17-59); BILIRUBIN,TOTAL 1.7 mg/dL (0.1-1.4); CALCIUM 8.3 mg/dL (8.5-10.4); CARBON DIOXIDE 24 mEq/l (22-31); CHLORIDE 100 mEq/L (97-110); CREATININE 0.6 mg/dL (0.7-1.3); GLOMERULAR FILTRATION RATE > 60; GLUCOSE 122 mg/dL (70-100); MAGNESIUM 1.3 mg/dL (1.6-2.3); PLATELET ESTIMATE DECREASED (ADEQ); POTASSIUM 3.9 mEq/L (3.5-5.2); SODIUM 132 mEq/L (134-144)
[2016-09-25] MEDS ORDERED: POTASSIUM CL 10 MEQ TAB PO ONE ×2 (03:32→19:42)
[2016-09-25] MEDS ORDERED: CALCIUM GLUCONATE 50 ML IV ONE (03:33)
[2016-09-25] MEDS ORDERED: MAGNESIUM SULF 2 GM/WATER 50 ML IV ONE (03:33)
[2016-09-25] MEDS ORDERED: K PHOS 15 MMOL in D5W 250 ML IV ONE (04:00)
[2016-09-25] MEDS: LORazepam 2 MG/ML INJ IVP PRN ×5 (04:26→23:56)
[2016-09-25] MEDS: NICOTINE 14 MG/24 HR PATCH TD SCH (07:45)
[2016-09-25] MEDS: FOLIC ACID 1 MG TAB PO SCH (07:45)
[2016-09-25] MEDS: THIAMINE HCL 100 MG TAB PO SCH (07:45)
[2016-09-25] MEDS: PANTOPRAZOLE SODIUM 40 MG TAB PO SCH (07:45)
[2016-09-25] MEDS: MULTIVITAMINS 1 EACH TAB PO SCH (07:45)
[2016-09-25] MEDS: ACETAMINOPHEN 325 MG TAB PO PRN (07:45)
[2016-09-25] MEDS: POTASSIUM CL 20 MEQ TAB PO SCH (07:45)
--- NOTE | 2016-09-25 15:55 | HOSPPROG ---
Hospitalist Progress Note Assessment/Plan: 40 yo M with pmh of chronic etoh abuse and prior DTs and etoh w/d seizures admitted with SI/etoh w/d # Suicidal ideation: with hx of depression and patient with a plan for how to kill himself on arrival. He required medical admission given etoh w/d and alcoholic hepatitis. Will need TLC eval prior to dc once medically cleared, on M1 hold # etoh abuse and w/d: with CIWA of 18 this am, continue prn ativan. continue mvi /thiamine/folate. # acute alcoholic hepatitis: with normal coags and low discriminant function, will continue to trend but already improving # anemia: has had drop in h/h that is likely dilutional, stable and likely chronic related to etoh abuse # thrombocytopenia: chronic and in the setting of BM suppression due to chronic etoh abuse and acute alc hep, has been chronically low but slightly lower than baseline currently. # agma: resolved post IVF, related to etoh ketoacidosis # hypomagnesemia/hypophosphatemia/hypokalemia: electrolyte protocol and will replete as needed, due to poor po intake in the setting of chronic etoh abuse # pulmonary nodule: small and stable over 5 months, will need repeat imaging in 6 then 18 months # dispo: IP status, will need > 48 hours stay for eval/mgmt of above given severe etoh withdrawal at high risk for DTs/seizure requiring ICU care Care plan reviewed with pulmonary and multidisciplinary care team on rounds. Subjective: no significant overnight events, patient continues to feel shaky and anxious, still having suicidal thoughts Objective: Vital Signs Temp Pulse Resp BP Pulse Ox 37.0 C 98 21 H 114/78 96 09/25/16 08:00 09/25/16 12:00 09/25/16 12:00 09/25/16 12:00 09/25/16 12:00 Laboratory Results 09/25/16 02:20 09/25/16 02:20 09/24/16 09/25/16 09/26/16 05:59 05:59 05:59 Intake Total 3810 4267 Balance 3810 4267 PT 14.7 SEC (12.0-15.0) 09/24/16 03:15 INR 1.15 (0.83-1.16) 09/24/16 03:15 awake alert anxious anicteric op clear poor dentition regular rate, tachy, no mrg cta b soft nt nd no cce warm dry well perfused oriented appropriate ICD10 Worksheet Patient Problems: Problems Problem Status Diagnosed Alcohol withdrawal Acute Alcoholic hepatitis Acute Alcoholic ketoacidosis Acute Cellulitis and abscess of hand Acute Suicidal ideation Acute Alcohol withdrawal seizure Acute Metabolic acidosis Acute Pancreatitis Acute
[2016-09-25 17:53] LABS: POTASSIUM 3.6 mEq/L (3.5-5.2)
[2016-09-26] MEDS: LORazepam 1 MG TAB PO SCH ×3 (04:56→17:42)
[2016-09-26 04:57] LABS: IONIZED CALCIUM 1.07 MMOL/L (1.12-1.30)
[2016-09-26 05:02] LABS: % IMMATURE GRANULYOCYTES 0.3 % (0.0-1.1); ABSOLUTE IMMATURE GRANULOCYTES 0.02 10^3/uL (0.00-0.10); ADD DIFF? NO; ADD MORPH? NO; ADD SCAN? NO; ATYPICAL LYMPHOCYTE FLAG 50 (0-99); FRAGMENT RBC FLAG 0 (0-99); HEMATOCRIT 35.7 % (40.0-51.0); HEMOGLOBIN 12.1 g/dL (13.7-17.5); LEFT SHIFT FLG 40 (0-99); LIPEMIA HEMOLYSIS FLAG 90 (0-99); MEAN CELL HEMOGLOBIN 33.7 pg (27.9-34.1); MEAN CELL HEMOGLOBIN CONCENTR. 33.9 g/dL (32.4-36.7); MEAN CELL VOLUME 99.4 fL (81.5-99.8); MEAN PLATELET VOLUME 12.1 fL (8.7-11.7); PLATELET CLUMPS FLAG 0 (0-99); RED BLOOD CELL COUNT 3.59 10^6/uL (4.40-6.38); RED CELL DISTRIBUTION WIDTH 17.2 % (11.5-15.2)
[2016-09-26 05:23] LABS: ALANINE AMINOTRANSFERASE 189 IU/L (21-72); ALBUMIN 3.2 g/dL (3.5-5.0); ALKALINE PHOSPHATASE 298 IU/L (38-126); ANION GAP 9 mEq/L (8-16); ASPARTATE AMINOTRANSFERASE 564 IU/L (17-59); BILIRUBIN,TOTAL 2.5 mg/dL (0.1-1.4); CALCIUM 8.6 mg/dL (8.5-10.4); CARBON DIOXIDE 22 mEq/l (22-31); CHLORIDE 105 mEq/L (97-110); CREATININE 0.5 mg/dL (0.7-1.3); GLOMERULAR FILTRATION RATE > 60; GLUCOSE 106 mg/dL (70-100); MAGNESIUM 1.6 mg/dL (1.6-2.3); POTASSIUM 4.3 mEq/L (3.5-5.2); SODIUM 136 mEq/L (134-144); TOTAL PROTEIN 6.5 g/dL (6.3-8.2)
[2016-09-26 05:26] LABS: PLATELET COUNT 35 10^3/uL (150-400)
[2016-09-26 05:44] LABS: BILIRUBIN-UNCONJUGATED 0.5 mg/dL (0.0-1.1)
[2016-09-26] MEDS ORDERED: MAGNESIUM SULF 1 GM/DEXTROSE 100 ML IV ONE ×2 (05:45→11:28)
[2016-09-26] MEDS ORDERED: CALCIUM GLUCONATE 50 ML IV ONE ×2 (05:45→11:28)
[2016-09-26 05:57] LABS: PLATELET ESTIMATE DECREASED (ADEQ)
[2016-09-26] MEDS: NICOTINE 14 MG/24 HR PATCH TD SCH (07:57)
[2016-09-26] MEDS: FOLIC ACID 1 MG TAB PO SCH (07:58)
[2016-09-26] MEDS: NS 1,000 ML IV SCH (07:58)
[2016-09-26] MEDS: PANTOPRAZOLE SODIUM 40 MG TAB PO SCH (07:58)
[2016-09-26] MEDS: MULTIVITAMINS 1 EACH TAB PO SCH (07:58)
[2016-09-26] MEDS: THIAMINE HCL 100 MG TAB PO SCH (07:58)
[2016-09-26] MEDS: POTASSIUM CL 20 MEQ TAB PO SCH (07:58)
[2016-09-26] MEDS: LORazepam 2 MG/ML INJ IVP PRN ×3 (09:37→17:42)
[2016-09-26] MEDS: ACETAMINOPHEN 325 MG TAB PO PRN (09:37)
[2016-09-26] MEDS ORDERED: ALBUTEROL 3 ML DEYVIAL IH PRN (10:24)
--- NOTE | 2016-09-26 14:56 | DX ---
Portable AP chest. 09/26/2016 at 1335 History: Follow-up airways disease. Comparison examination: September 23, 2016. Findings: No focal infiltrate, pleural effusion, pneumothorax. Heart size is normal. Impression: Stable negative chest.
--- NOTE | 2016-09-26 15:50 | HOSPPROG ---
Hospitalist Progress Note Assessment/Plan: 40 yo M with pmh of chronic etoh abuse and prior DTs and etoh w/d seizures admitted with SI/etoh w/d # Suicidal ideation: with hx of depression and patient with a plan for how to kill himself on arrival. M1 expires today, patient not threatening to leave and likely too sick to leave for now. Will need recurrent hold if tries to leave ama. # etoh abuse and w/d: with CIWA of 18 this am, continue prn ativan. continue mvi /thiamine/folate. # acute alcoholic hepatitis: with normal coags and low discriminant function, will continue to trend # anemia: has had drop in h/h that is likely dilutional, stable and likely chronic related to etoh abuse # thrombocytopenia: chronic and in the setting of BM suppression due to chronic etoh abuse and acute alc hep, has been chronically low but slightly lower than baseline currently. # agma: resolved post IVF, related to etoh ketoacidosis # hypomagnesemia/hypophosphatemia/hypokalemia: electrolyte protocol and will replete as needed, due to poor po intake in the setting of chronic etoh abuse # pulmonary nodule: small and stable over 5 months, will need repeat imaging in 6 then 18 months # dispo: IP status, will need > 48 hours stay for eval/mgmt of above given severe etoh withdrawal at high risk for DTs/seizure requiring ICU care Care plan reviewed with pulmonary and multidisciplinary care team on rounds. Subjective: had fever, increased hr overnight, seems to be having worse withdrawal today Objective: Vital Signs Temp Pulse Resp BP Pulse Ox 36.9 C 85 18 109/69 94 09/26/16 10:00 09/26/16 15:00 09/26/16 15:00 09/26/16 15:00 09/26/16 15:00 Laboratory Results 09/26/16 04:50 09/26/16 04:50 09/25/16 09/26/16 09/27/16 05:59 05:59 05:59 Intake Total 4267 2250 Output Total 2300 Balance 4267 -50 PT 14.7 SEC (12.0-15.0) 09/24/16 03:15 INR 1.15 (0.83-1.16) 09/24/16 03:15 awake alert anxious anicteric op clear poor dentition regular rate, tachy, no mrg cta b soft nt nd no cce warm dry well perfused oriented appropriate ICD10 Worksheet Patient Problems: Problems Problem Status Diagnosed Alcohol withdrawal Acute Alcoholic hepatitis Acute Alcoholic ketoacidosis Acute Cellulitis and abscess of hand Acute Suicidal ideation Acute Alcohol withdrawal seizure Acute Metabolic acidosis Acute Pancreatitis Acute
--- NOTE | 2016-09-26 18:26 | GCON ---
[f rep st] CONSULTATION PULMONARY CRITICAL CARE CONSULTATION DATE OF CONSULTATION: 09/26/2016 REASON FOR CONSULTATION: Intensive care unit evaluation and management of alcohol withdrawal and lynda cide ideation. HISTORY: The patient is a 40-year-old gentleman with a history of chronic alcohol abuse and multiple related problems. He has had DTs in the past when withdrawing from alcohol, seizures, and pancreatit is. He also has a history of depression, and was brought into the emergency department on 09/23, afte r expressing suicide ideations to a friend. He was in a park in [place] at that time and was intoxica pratima. He states he drinks at least 2 pints of whiskey per day. He smokes a pack to a pack and a half o f cigarettes per day. He has had frequent evaluations in the emergency department for alcohol-related issues. He was last admitted to the hospital about 14 months ago for alcohol withdrawal and pancreat itis. On admission, he was placed on the CIWA protocol, given routine Ativan to prevent seizures, and place d on an M1 hold secondary to his suicide ideations. He has continued to say he is depressed and would like to kill himself. PAST MEDICAL HISTORY: Remarkable for issues related to alcohol as outlined above, depression, and ch ronic tobacco abuse, probably with a component of COPD. DRUG ALLERGIES: None known. PAST SURGICAL HISTORY: I and D of a hand abscess. SOCIAL HISTORY: The patient is homeless, heavy user of alcohol and cigarettes. Has used other drugs in the past, none IV. FAMILY HISTORY: Noncontributory, unknown. REVIEW OF SYSTEMS: A 10-point review of systems is negative for significant systems disease in the p ast. He denies heart disease, previous known thromboembolic disease, kidney disease, etc. He complain s of some shortness of breath and anterior chest wall pain, abdominal discomfort, general malaise, et c. PHYSICAL EXAMINATION: GENERAL: A gentleman who is lying comfortably in bed. VITAL SIGNS: Blood press ure is 115/65, heart rate 90, with sinus rhythm on the monitor. He has been tachycardic in the low 10 0s earlier. Respiratory rate is approximately 25 currently. He has no respiratory distress. On 2 L, s aturations are 95%. He is currently afebrile with a maximum temperature in the last 24 hours of 38.2. HEENT: Unremarkable for lymphadenopathy or thyromegaly. Dentition is poor. Mucous membranes are mois t. There is no obvious jugular venous distention. CHEST: Fairly clear bilaterally. There is minimal c ongestion with coughing, no wheezing, no rales, no evidence of consolidation. HEART: Regular in rate and rhythm. There is a soft systolic murmur. No gallop is appreciated. ABDOMEN: Somewhat firm. Hepato megaly is present, and there is mild tenderness over the liver. I do not appreciate a spleen. Bowel s ounds are present. There are no masses. No Abreu catheter is in place. He is using the urinal. EXTREM ITIES: Unremarkable for edema, cords, or tenderness. He has multiple tattoos. There is no skin rash. NEUROLOGIC: Examination is nonfocal and intact. He is currently oriented x2, but not to the exact dixie e. DATABASE: Chest x-ray done today shows no significant infiltrate. Markings are somewhat coarse at th e bases. The cardiac silhouette is borderline upper limits of normal. There are no pleural effusions. LABORATORY: White blood cell count is 6300, hematocrit 35.7, down from 40 on admission. Platelets ar e 35,000, down from 68,000 on admission. PT and PTT were normal on admission. Chemistry shows a sodiu m of 136, potassium 4.3, normal chloride and CO2, BUN 5 with a creatinine of 0.5. Ionized calcium is low at 1.07, glucose 106. Phosphorus and magnesium are within normal limits, having been repleted yes terday for low values. Bilirubin is 2. AST 564, ALT 189, both slightly down compared to yesterday. Al bumin is 3.2. Blood alcohol on admission was 307. Urine tox screen was positive for THC and benzodiaz epines. Influenza by PCR was negative. ASSESSMENT: 1. Suicide ideation. The patient does have a history of depression and expressed suicidal ideation w hile intoxicated prior to his admission. He continues to state that he is depressed and suicidal. Lynda cide precautions and his M1 hold need to be continued. 2. Chronic alcohol abuse, with acute intoxication on admission. 3. Alcohol withdrawal. He is on the CIWA protocol. He has been given routine Ativan 1 mg q.i.d. for alcohol withdrawal seizure prevention. He does have a history of withdrawal seizures in the past. At the current time, he is doing well. CIWA is relatively low. He has a mild tremor and is only mildly t achycardic at times. CIWA will be continued. 4. Alcohol-induced thrombocytopenia and alcoholic hepatitis. Likely has a degree of bone marrow supp ression and could have hypersplenism. 5. Hypocalcemia, hypophosphatemia, hypomagnesemia, on replacement protocols. 6. Deep venous thrombosis prophylaxis: Sequential compression devices. With his falling platelet cou nt, subcutaneous enoxaparin is not being given. 7. Gastrointestinal prophylaxis: On pantoprazole. PLAN AND RECOMMENDATIONS: The patient will be kept in the intensive care unit. His M1 hold will be m aintained. The CIWA protocol will be continued. Ativan will be given routinely. This can likely be de creased tomorrow. There is no indication for antibiotics at this time. Respiratory status will be fol lowed. Albuterol will be given as needed. A nicotine patch will be prescribed. Electrolytes will be f ollowed and replaced as needed. Once medically clear, he will need to have psychiatric evaluation and may need further inpatient treatment. Further plans and recommendations will be made based on his progress over the next 12-24 hours. /[id number]/MODL
[2016-09-26 18:29] LABS: POTASSIUM 4.1 mEq/L (3.5-5.2)
[2016-09-27] MEDS: LORazepam 1 MG TAB PO SCH ×3 (00:44→11:24)
[2016-09-27 06:07] LABS: IONIZED CALCIUM 1.05 MMOL/L (1.12-1.30)
[2016-09-27 06:10] LABS: % IMMATURE GRANULYOCYTES 0.5 % (0.0-1.1); ABSOLUTE IMMATURE GRANULOCYTES 0.03 10^3/uL (0.00-0.10); ADD DIFF? NO; ADD MORPH? NO; ADD SCAN? NO; ATYPICAL LYMPHOCYTE FLAG 70 (0-99); FRAGMENT RBC FLAG 0 (0-99); HEMATOCRIT 32.7 % (40.0-51.0); HEMOGLOBIN 11.1 g/dL (13.7-17.5); LEFT SHIFT FLG 20 (0-99); LIPEMIA HEMOLYSIS FLAG 90 (0-99); MEAN CELL HEMOGLOBIN CONCENTR. 33.9 g/dL (32.4-36.7); MEAN CELL VOLUME 100.3 fL (81.5-99.8); MEAN PLATELET VOLUME 13.1 fL (8.7-11.7); PLATELET CLUMPS FLAG 20 (0-99); RED BLOOD CELL COUNT 3.26 10^6/uL (4.40-6.38); RED CELL DISTRIBUTION WIDTH 18.5 % (11.5-15.2)
[2016-09-27 06:11] LABS: PLATELET COUNT 46 10^3/uL (150-400)
[2016-09-27 06:32] LABS: ALANINE AMINOTRANSFERASE 151 IU/L (21-72); ALKALINE PHOSPHATASE 215 IU/L (38-126); ANION GAP 7 mEq/L (8-16); ASPARTATE AMINOTRANSFERASE 391 IU/L (17-59); BILIRUBIN,TOTAL 3.2 mg/dL (0.1-1.4); CALCIUM 8.3 mg/dL (8.5-10.4); CARBON DIOXIDE 22 mEq/l (22-31); CHLORIDE 104 mEq/L (97-110); CREATININE 0.5 mg/dL (0.7-1.3); GLOMERULAR FILTRATION RATE > 60; GLUCOSE 97 mg/dL (70-100); MAGNESIUM 1.8 mg/dL (1.6-2.3); SODIUM 133 mEq/L (134-144); TOTAL PROTEIN 6.3 g/dL (6.3-8.2)
[2016-09-27 06:40] LABS: BILIRUBIN-CONJUGATED 2.6 mg/dL (0.0-0.5); BILIRUBIN-UNCONJUGATED 0.6 mg/dL (0.0-1.1); PLATELET ESTIMATE DECREASED (ADEQ)
[2016-09-27] MEDS ORDERED: MAGNESIUM SULF 1 GM/DEXTROSE 100 ML IV ONE (07:17)
[2016-09-27] MEDS ORDERED: CALCIUM GLUCONATE 50 ML IV ONE (07:17)
[2016-09-27] MEDS: POTASSIUM CL 20 MEQ TAB PO SCH (07:26)
[2016-09-27] MEDS: NICOTINE 14 MG/24 HR PATCH TD SCH (07:32)
[2016-09-27] MEDS: PANTOPRAZOLE SODIUM 40 MG TAB PO SCH (07:32)
[2016-09-27] MEDS: MULTIVITAMINS 1 EACH TAB PO SCH (07:33)
[2016-09-27] MEDS: FOLIC ACID 1 MG TAB PO SCH (07:33)
[2016-09-27] MEDS: THIAMINE HCL 100 MG TAB PO SCH (07:35)
[2016-09-27] MEDS: ACETAMINOPHEN 325 MG TAB PO PRN ×2 (10:37→17:37)
--- NOTE | 2016-09-27 11:44 | HOSPPROG ---
Hospitalist Progress Note Assessment/Plan: * Etoh withdrawal - improving -change ativan back to prn and wean to off * Etoh hepatitis * ongoing abd pain - h/o pancreatitis -will check CT a/p given rising LFT (abd us negative) -lactate 4 on admission - will recheck * Headache 8/10 - never before -with low platelets - will check CT head * Suicidal ideation - M1 -patient contracted for safety while in hospital - keep ICU -resume M1 hold when approaching discharge or if tries to leave AMA * Thrombocytopenia - due to ETOH/liver disease * Pulmonary nodule - outpatient follow-up - CXR 6 months Subjective: c/o ongoing 8/ headache for 3 days, never before, denies trauma. Abd pain feels like his pancreatitis. Objective: Vital Signs Temp Pulse Resp BP Pulse Ox 36.7 C 85 18 125/77 H 90 L 09/27/16 08:00 09/27/16 08:00 09/27/16 08:00 09/27/16 08:00 09/27/16 08:00 Laboratory Results 09/27/16 06:00 09/27/16 06:00 09/26/16 09/27/16 09/28/16 05:59 05:59 05:59 Intake Total 2250 3813 400 Output Total 2300 2000 Balance -50 1813 400 PT 14.7 SEC (12.0-15.0) 09/24/16 03:15 INR 1.15 (0.83-1.16) 09/24/16 03:15 d/w Dr. Sherman Crooks - ICU rounds - Physical Exam Constitutional: no apparent distress, appears nourished, not in pain Cardiovascular: regular rate and rhythym, no murmur, rub, or gallop Respiratory: no respiratory distress, no rales or rhonchi, clear to auscultation Gastrointestinal: tenderness, distension, No guarding, No rebound Skin: no rashes or abrasions, no fluctuance, no induration Neurologic: AAOx3, sensation intact bilaterally Psychiatric: interacting appropriately, not anxious, not encephalopathic, thought process linear ICD10 Worksheet Patient Problems: Problems Problem Status Diagnosed Alcohol withdrawal Acute Alcoholic hepatitis Acute Alcoholic ketoacidosis Acute Cellulitis and abscess of hand Acute Suicidal ideation Acute Alcohol withdrawal seizure Acute Metabolic acidosis Acute Pancreatitis Acute
--- NOTE | 2016-09-27 12:08 | PDINTPN ---
Role Player Progress Note Assessment/Plan: Assessment: Chronic alcohol abuse. ETOH withdrawal, resolving. Alcoholic hepatitis, bone marrow suppression, including thrombocytopenia. Abdominal pain likely secondary to alcoholic hepatitis and swollen/enlarged liver. Probable COPD, history of ongoing tobacco abuse. On nebulized treatments. Chest x-rays negative. No evidence of pneumonia. Suicidal ideation. Off hold. Has a contract with nursing regarding not hurting himself. Still reports suicidal ideation. Metabolic: On replacement protocols. DVT prophylaxis: SCDs. Lovenox on hold secondary to thrombocytopenia. Plan: Hopefully patient can be medically cleared today for psychiatric disposition. Ativan can be decreased an used as needed only. Nebulized treatments will be continued for now. Can switch to metered-dose inhalers on discharge. For is CT scan of the head and abdomen today however I suspect there will be no acute pathology found. Subjective: Doing okay. Feels a little better. Still has some abdominal discomfort. Complains of headache. Still reports suicidal ideation. Objective: Vital Signs Temp Pulse Resp BP Pulse Ox 36.7 C 93 35 H 112/68 90 L 09/27/16 12:00 09/27/16 12:00 09/27/16 12:00 09/27/16 12:00 09/27/16 12:00 Laboratory Results 09/27/16 06:00 09/27/16 06:00 09/26/16 09/27/16 09/28/16 05:59 05:59 05:59 Intake Total 2250 3813 400 Output Total 2300 2000 Balance -50 1813 400 PT 14.7 SEC (12.0-15.0) 09/24/16 03:15 INR 1.15 (0.83-1.16) 09/24/16 03:15 Laboratory Tests 09/27/16 06:00 Calcium 8.3 L Ionized Calcium 1.05 L Phosphorus 2.7 Magnesium 1.8 Total Bilirubin 3.2 H AST 391 H ALT 151 H Physical Exam - Physical Exam General Appearance: no apparent distress, other (Lethargic, arousable) EENT: PERRL/EOMI, other (On room air) Neck: normal inspection (No JVD) Respiratory: lungs clear (Anteriorly), decreased breath sounds (At bases), wheezing (At bases mostly on the left, with some congestion.) Cardiac/Chest: regular rate, rhythm Abdomen: normal bowel sounds, soft, hepatomegaly, No non-tender (Mildly tender) Skin: normal color, warm/dry Extremities: No pedal edema Neuro/Psych: no motor/sensory deficits (Non focal), oriented x 3, depressed affect, No cognition abnormalities ICD10 Worksheet Patient Problems: Problems Problem Status Diagnosed Alcohol withdrawal Acute Alcoholic hepatitis Acute Alcoholic ketoacidosis Acute Cellulitis and abscess of hand Acute Suicidal ideation Acute Alcohol withdrawal seizure Acute Metabolic acidosis Acute Pancreatitis Acute
[2016-09-27] MEDS ORDERED: IOPAMIDOL (ISOVUE-300) 100 ML BTL IV ONE (15:50)
[2016-09-27] MEDS: oxyCODONE IR 5 MG TAB PO PRN (16:20)
--- NOTE | 2016-09-27 16:30 | CT ---
CT Brain (Without Contrast) at 1604 hours History: Headache, alcoholic ketoacidosis. Comparison: None. Technique: Axial computed tomographic images of the brain without contrast. Dose reduction technique s were utilized. Findings: Ventricles, cisterns, and sulci are slightly widened consistent with mild atrophy. No hydr ocephalus, midline shift/herniation, or epidural/subdural hematomas. No acute intraparenchymal hemorr leonor, definite infarct, or mass effect. Bone windows demonstrate no displaced fractures. Severe bilat eral pansinusitis involving especially bilateral ethmoid sinuses are almost completely opacified, 50- 80% opacification bilateral maxillary sinuses, left worse than right, 50% opacification bilateral fro ntal sinuses, and mild because of thickening bilateral sphenoid sinuses. No bone expansion or destruc tion. Mastoid air cells are clear. Impression: 1. Severe bilateral melendez sinusitis. 2. Mild atrophy. 3. No acute hemorrhage, hydrocephalus or mass effect.
[2016-09-27] MEDS: LORazepam 1 MG TAB PO PRN (17:17)
[2016-09-27] MEDS ORDERED: NS 1,000 ML IV SCH (17:30)
--- NOTE | 2016-09-27 17:50 | DX ---
Portable Chest, Single View September 27, 2016 at 1716 hours History: Increased O2 needs. Comparison: September 26, 2016. Findings: The heart size is within normal limits. The pulmonary vascularity appears normal. Infilt rate is seen in the left lower lobe. No evidence for a pleural effusion or pneumothorax. Incomplete ly healed distal right clavicle fracture. Impression: Left lower lobe infiltrate. E:CN/amm
[2016-09-27] MEDS ORDERED: IOPAMIDOL (ISOVUE 370) 100 ML BTL IV ONE (17:59)
[2016-09-27 18:11] LABS: BASE EXCESS -0.9 mEq/L (-2.5-2.5); BICARBONATE 20 mEq/L (22-26); MEASURED OXYGEN SATURATION 97 % (92-95); PCO2 26 mmHg (34-38); PO2 88 mmHg (65-75); TCO2 21 mEq/L (23-27)
[2016-09-27] MEDS: ERTAPENEM 1 GM in NS 100 ML IV SCH (18:31)
--- NOTE | 2016-09-27 18:47 | CT ---
CT Scan of the Abdomen and Pelvis (With Contrast) Indication: Abdominal pain. History of pancreatitis and liver disease from EtOH. Comparison: CT July 2016. Abdominal ultrasound September 2016. Technique: 90 mL of Isovue 300 were given intravenously by machine power injection. Oral contrast wa s administered. Multidetector helical CT imaging was performed from the diaphragm to the symphysis pu bis. Dose reduction techniques were utilized. Findings: Abdomen: Nodular opacification is seen at the left lung base suggesting a pneumonia. No evidence for pleural effusion. The liver is enlarged measuring 25 cm craniocaudal with diffuse decreased attenuati on. Gallbladder is unremarkable. Mild stranding is seen just inferior to the tail the pancreas. Splee n is unremarkable. Both adrenal glands are normal in size and appearance. Both kidneys enhance normal ly without evidence for mass or hydronephrosis. Portal vein is patent. No significant abdominal lymph adenopathy. Pelvis: No significant free fluid in the pelvis. The appendix continues to be enlarged measuring 9 to 10 mm with a stable appearance. No significant adjacent inflammatory change. No evidence for an abno rmal fluid collection. No evidence for small bowel obstruction. Impression: 1. Dense of mild pancreatitis with mild inflammatory change inferior to the tail of pancreas. 2. Chronic enlargement of the appendix measuring 9 to 10 mm stable in appearance without adjacent inf lammatory change. Possible chronic appendicitis. 3. Left lower lobe pneumonia. 4. Hepatomegaly with fatty infiltration.. Results called and discussed with Daja Spain MD at 09/27/2016 17:08
--- NOTE | 2016-09-28 02:43 | CT ---
CT Angiogram Chest, With IV Contrast History: Acute hypoxia. Tachycardia. Technique: 1.5-mm helical images were obtained of the chest from the lung apices through the lung ba ses. This was done postintravenous contrast, with 90 mL Isovue-370 contrast. Multiplanar and 3D chris luation was performed at the workstation. Radiation dose reduction technique was utilized. Comparison: CT abdomen and pelvis performed earlier today. Findings: Pulmonary Angiogram: The pulmonary arteries are suboptimally opacified with contrast secondary to th e patient doing a Valsalva with breath-hold diminishing inflow to the right atrium and pulmonary gordon ely. There is good opacification in the pulmonary veins, left ventricle, and right brachiocephalic vein. There is, however, no filling defect to indicate a pulmonary embolus. The patient was not giv en another contrast or injection to repeat the study secondary to recently having a contrast administ ration for the abdomen and pelvis CT. No evidence for thoracic aortic dissection or aneurysm. Chest: Nodular opacification is seen in the left lower lobe indicating pneumonia. There is also queenie e subtle peripheral nodularity in the left upper lobe and right lower lobe suggesting small airways d isease. There is mild peribronchial wall thickening bilaterally. Heart size is within normal limits . No evidence for a pericardial effusion. The upper abdomen findings can be seen in the report from the CT abdomen and pelvis earlier today. Impression: 1. Suboptimal opacification of the pulmonary arteries, although there are no findings to suggest pul monary embolus. This could be repeated tomorrow, as clinically indicated, as the patient already had a prior contrast administration today for the CT abdomen and pelvis. 2. Left lower lobe pneumonia. There also appears to be some underlying bronchitis and small airways disease.
[2016-09-28 05:42] LABS: IONIZED CALCIUM 1.06 MMOL/L (1.12-1.30)
[2016-09-28 06:00] LABS: ALANINE AMINOTRANSFERASE 142 IU/L (21-72); ALBUMIN 3.1 g/dL (3.5-5.0); ALKALINE PHOSPHATASE 211 IU/L (38-126); ANION GAP 11 mEq/L (8-16); ASPARTATE AMINOTRANSFERASE 289 IU/L (17-59); BILIRUBIN-CONJUGATED 2.9 mg/dL (0.0-0.5); BILIRUBIN-UNCONJUGATED 1.1 mg/dL (0.0-1.1); CALCIUM 8.3 mg/dL (8.5-10.4); CARBON DIOXIDE 23 mEq/l (22-31); CHLORIDE 103 mEq/L (97-110); CREATININE 0.5 mg/dL (0.7-1.3); GLOMERULAR FILTRATION RATE > 60; GLUCOSE 89 mg/dL (70-100); MAGNESIUM 1.8 mg/dL (1.6-2.3); POTASSIUM 3.9 mEq/L (3.5-5.2); SODIUM 137 mEq/L (134-144); TOTAL PROTEIN 6.5 g/dL (6.3-8.2)
[2016-09-28 06:20] LABS: % IMMATURE GRANULYOCYTES 0.9 % (0.0-1.1); ABSOLUTE IMMATURE GRANULOCYTES 0.06 10^3/uL (0.00-0.10); ADD DIFF? NO; ADD MORPH? NO; ADD SCAN? YES; ATYPICAL LYMPHOCYTE FLAG 90 (0-99); FRAGMENT RBC FLAG 0 (0-99); HEMATOCRIT 33.9 % (40.0-51.0); HEMOGLOBIN 11.7 g/dL (13.7-17.5); LIPEMIA HEMOLYSIS FLAG 90 (0-99); MEAN CELL HEMOGLOBIN 33.5 pg (27.9-34.1); MEAN CELL HEMOGLOBIN CONCENTR. 34.5 g/dL (32.4-36.7); MEAN CELL VOLUME 97.1 fL (81.5-99.8); MEAN PLATELET VOLUME 12.2 fL (8.7-11.7); PLATELET CLUMPS FLAG 0 (0-99); PLATELET COUNT 76 10^3/uL (150-400); RED BLOOD CELL COUNT 3.49 10^6/uL (4.40-6.38)
[2016-09-28 06:32] LABS: LEFT SHIFT FLG 120 (0-99)
[2016-09-28] MEDS: LORazepam 1 MG TAB PO PRN ×2 (06:41→17:26)
[2016-09-28 07:02] LABS: SCAN NEGATIVE
[2016-09-28] MEDS ORDERED: CALCIUM GLUCONATE 50 ML IV ONE (07:33)
[2016-09-28] MEDS ORDERED: MAGNESIUM SULF 1 GM/DEXTROSE 100 ML IV ONE (07:42)
[2016-09-28] MEDS: POTASSIUM CL 20 MEQ TAB PO SCH (08:09)
[2016-09-28] MEDS: THIAMINE HCL 100 MG TAB PO SCH (08:09)
[2016-09-28] MEDS: MULTIVITAMINS 1 EACH TAB PO SCH (08:09)
[2016-09-28] MEDS: oxyCODONE IR 5 MG TAB PO PRN ×3 (08:09→21:50)
[2016-09-28] MEDS: FOLIC ACID 1 MG TAB PO SCH (08:09)
[2016-09-28] MEDS: ERTAPENEM 1 GM in NS 100 ML IV SCH (08:51)
[2016-09-28] MEDS ORDERED: VANCOMYCIN HCL/NORMAL SALINE 250 ML IV SCH (10:30)
[2016-09-28] MEDS: VANCOMYCIN 1.25 GM in D5W 250 ML IV SCH (12:14)
[2016-09-28] MEDS: NICOTINE 14 MG/24 HR PATCH TD SCH (12:20)
--- NOTE | 2016-09-28 15:47 | PDINTPN ---
Rn Relief Charge Progress Note Assessment/Plan: Assessment: Chronic alcohol abuse. ETOH withdrawal, resolving. Alcoholic hepatitis, chronic pancreatitis, bone marrow suppression, including thrombocytopenia (improved). Abdominal pain likely secondary to alcoholic hepatitis and swollen/enlarged liver, as well as chronic pancreatitis. Probable COPD, history of ongoing tobacco abuse. On nebulized treatments. now has left basilar pneumonia, possibly MRSA , possibly aspiration MRSA bacteremia. Sinusitis Suicidal ideation. Off hold. Has a contract with nursing regarding not hurting himself. Still reports depression/suicidal thoughts, no plans. Metabolic: On replacement protocols. DVT prophylaxis: SCDs. Lovenox on hold secondary to thrombocytopenia. Plan: Continue care in ICU. Ertapenem and vancomycin started. Continue CIWA protocol. Ativan as needed only. Nebulized treatments will be continued. Start nasal therapy. Follow chest x-ray, laboratory. Subjective: Doing okay. Headache less. Some abdominal discomfort, nonspecific. Able to eat without nausea or vomiting. Objective: Vital Signs Temp Pulse Resp BP Pulse Ox 37.2 C 85 12 122/73 H 92 09/28/16 12:00 09/28/16 14:00 09/28/16 14:00 09/28/16 14:00 09/28/16 14:00 Microbiology 09/27/16 17:45 Blood Panel (PCR) - Final Blood MRSA Laboratory Results 09/28/16 05:40 09/28/16 05:40 09/27/16 09/28/16 09/29/16 05:59 05:59 05:59 Intake Total 3813 3884 Output Total 2000 200 Balance 1813 3684 PT 14.7 SEC (12.0-15.0) 09/24/16 03:15 INR 1.15 (0.83-1.16) 09/24/16 03:15 Blood cultures: Gram-positive cocci, positive for MRSA. CT chest: Negative for pulmonary embolic disease although bolus was somewhat mistimed. patchy left lower lobe infiltrate /atelectasis consistent with pneumonia. Abdominal CT: consistent with chronic pancreatitis Head CT: No intracranial abnormalities. Sinus Opacifications noted, consistent with sinusitis. Laboratory Tests 09/28/16 05:40 Calcium 8.3 L Ionized Calcium 1.06 L Magnesium 1.8 Total Bilirubin 4.0 H AST 289 H ALT 142 H Albumin 3.1 L Physical Exam - Physical Exam General Appearance: alert, no apparent distress EENT: other ( On room air, 92%) Neck: normal inspection Respiratory: decreased breath sounds ( at the bases), rales ( rales at the left base, some central congestion without casie rhonchi.), wheezing (arily), No rhonchi Cardiac/Chest: regular rate, rhythm Abdomen: normal bowel sounds, soft, hepatomegaly, No non-tender ( Mildly tender ) Male Genitalia: other (bathroom/urinal) Skin: warm/dry, pallor Extremities: No pedal edema Neuro/Psych: no motor/sensory deficits ( mild tremor), No cognition abnormalities ICD10 Worksheet Patient Problems: Problems Problem Status Diagnosed Alcohol withdrawal Acute Alcoholic hepatitis Acute Alcoholic ketoacidosis Acute Cellulitis and abscess of hand Acute Suicidal ideation Acute Alcohol withdrawal seizure Acute Metabolic acidosis Acute Pancreatitis Acute
[2016-09-28] MEDS ORDERED: SODIUM CL NASAL 45 ML BTL EACHNARE PRN (16:05)
--- NOTE | 2016-09-28 16:11 | HOSPPROG ---
Hospitalist Progress Note Assessment/Plan: * Etoh withdrawal -wean benzos * MRSA severe sepsis - fever/tachycardia/transient resp failure yesterday -IV Vanco -consult ID -check ECHO * Severe sinusitis -Flonase, antibiotic - IV Invanz * Aspiration PNA with acute respiratory failure -IV Invanz * Etoh hepatitis * Etoh pancreatitis - smoldering * Suicidal ideation - M1 -patient contracted for safety while in hospital - keep ICU -resume M1 hold when approaching discharge or if tries to leave AMA * Thrombocytopenia - due to ETOH/liver disease * Pulmonary nodule - outpatient follow-up - CXR 6 months Subjective: Got very sick yesterday afternoon with new fever - BC + MRSA Objective: Vital Signs Temp Pulse Resp BP Pulse Ox 37.2 C 85 12 122/73 H 92 09/28/16 12:00 09/28/16 14:00 09/28/16 14:00 09/28/16 14:00 09/28/16 14:00 Microbiology 09/27/16 17:45 Blood Panel (PCR) - Final Blood MRSA Laboratory Results 09/28/16 05:40 09/28/16 05:40 09/27/16 09/28/16 09/29/16 05:59 05:59 05:59 Intake Total 3813 3884 Output Total 2000 200 Balance 1813 3684 PT 14.7 SEC (12.0-15.0) 09/24/16 03:15 INR 1.15 (0.83-1.16) 09/24/16 03:15 - Physical Exam Constitutional: no apparent distress, appears nourished, not in pain Cardiovascular: regular rate and rhythym, no murmur, rub, or gallop Respiratory: no respiratory distress, no rales or rhonchi, clear to auscultation Gastrointestinal: normoactive bowel sounds, soft, non-tender abdomen, no palpable masses, hepatosplenomegally Skin: no rashes or abrasions, no fluctuance, no induration Neurologic: AAOx3, sensation intact bilaterally Psychiatric: interacting appropriately, not anxious, not encephalopathic, thought process linear ICD10 Worksheet Patient Problems: Problems Problem Status Diagnosed Alcohol withdrawal Acute Alcoholic hepatitis Acute Alcoholic ketoacidosis Acute Cellulitis and abscess of hand Acute Suicidal ideation Acute Alcohol withdrawal seizure Acute Metabolic acidosis Acute Pancreatitis Acute
[2016-09-28 16:22] LABS: COLOR AMBER; LEUKOCYTE ESTERASE,URINE NEGATIVE (NEGATIVE); NITRITE,URINE NEGATIVE (NEGATIVE)
[2016-09-28] MEDS: FLUTICASONE NASAL 120 SPRAYS/16 GM MDI EACHNARE SCH (17:30)
[2016-09-28] MEDS: OXYMETAZOLINE 30 ML NASAL SPRAY EACHNARE SCH (23:56)
[2016-09-28] MEDS: SODIUM CL NASAL 45 ML BTL EACHNARE SCH (23:56)
[2016-09-29] MEDS: VANCOMYCIN 1.25 GM in D5W 250 ML IV SCH ×2 (00:47→11:44)
[2016-09-29 06:29] LABS: IONIZED CALCIUM 1.09 MMOL/L (1.12-1.30)
[2016-09-29 06:32] LABS: % IMMATURE GRANULYOCYTES 2.5 % (0.0-1.1); ABSOLUTE IMMATURE GRANULOCYTES 0.16 10^3/uL (0.00-0.10); ADD DIFF? NO; ADD MORPH? NO; ADD SCAN? NO; ATYPICAL LYMPHOCYTE FLAG 80 (0-99); FRAGMENT RBC FLAG 0 (0-99); HEMATOCRIT 31.9 % (40.0-51.0); HEMOGLOBIN 10.9 g/dL (13.7-17.5); LEFT SHIFT FLG 60 (0-99); LIPEMIA HEMOLYSIS FLAG 90 (0-99); MEAN CELL HEMOGLOBIN 34.1 pg (27.9-34.1); MEAN CELL HEMOGLOBIN CONCENTR. 34.2 g/dL (32.4-36.7); MEAN CELL VOLUME 99.7 fL (81.5-99.8); MEAN PLATELET VOLUME 11.6 fL (8.7-11.7); PLATELET CLUMPS FLAG 10 (0-99); PLATELET COUNT 125 10^3/uL (150-400); RED CELL DISTRIBUTION WIDTH 19.3 % (11.5-15.2)
[2016-09-29 06:52] LABS: ALANINE AMINOTRANSFERASE 117 IU/L (21-72); ALBUMIN 2.9 g/dL (3.5-5.0); ALKALINE PHOSPHATASE 226 IU/L (38-126); ANION GAP 10 mEq/L (8-16); ASPARTATE AMINOTRANSFERASE 211 IU/L (17-59); BILIRUBIN,TOTAL 3.3 mg/dL (0.1-1.4); BILIRUBIN-CONJUGATED 2.3 mg/dL (0.0-0.5); CALCIUM 8.2 mg/dL (8.5-10.4); CARBON DIOXIDE 22 mEq/l (22-31); CHLORIDE 102 mEq/L (97-110); CREATININE 0.5 mg/dL (0.7-1.3); GLOMERULAR FILTRATION RATE > 60; GLUCOSE 101 mg/dL (70-100); POTASSIUM 4.1 mEq/L (3.5-5.2); SODIUM 134 mEq/L (134-144); TOTAL PROTEIN 6.4 g/dL (6.3-8.2)
[2016-09-29] MEDS ORDERED: CALCIUM GLUCONATE 50 ML IV ONE (07:22)
--- NOTE | 2016-09-29 08:32 | DX ---
Portable AP chest. 09/29/2016 at 6:12 AM History: f/u Comparison study: September 27, 2016 Findings: Patchy left lower lobe infiltrate, compatible with pneumonia, is unchanged. Right lung is clear. Heart size is normal. Impression: Stable patchy left lower lobe infiltrate.
[2016-09-29] MEDS: FLUTICASONE NASAL 120 SPRAYS/16 GM MDI EACHNARE SCH (08:35)
[2016-09-29] MEDS: FOLIC ACID 1 MG TAB PO SCH (08:35)
[2016-09-29] MEDS: THIAMINE HCL 100 MG TAB PO SCH (08:35)
[2016-09-29] MEDS: OXYMETAZOLINE 30 ML NASAL SPRAY EACHNARE SCH ×2 (08:35→19:49)
[2016-09-29] MEDS: MULTIVITAMINS 1 EACH TAB PO SCH (08:35)
[2016-09-29] MEDS: POTASSIUM CL 20 MEQ TAB PO SCH (08:35)
[2016-09-29] MEDS: NICOTINE 14 MG/24 HR PATCH TD SCH (08:36)
[2016-09-29] MEDS: SODIUM CL NASAL 45 ML BTL EACHNARE SCH ×2 (08:37→21:14)
[2016-09-29] MEDS: oxyCODONE IR 5 MG TAB PO PRN ×3 (08:54→21:13)
[2016-09-29] MEDS: ERTAPENEM 1 GM in NS 100 ML IV SCH (08:57)
--- NOTE | 2016-09-29 10:15 | GCON ---
[f rep st] CONSULTATION INFECTIOUS DISEASE CONSULTATION DATE OF CONSULTATION: 09/29/2016 REFERRING PHYSICIAN: Daja Spain MD REASON FOR CONSULTATION: MRSA bacteremia, for further evaluation and opinion. CHIEF COMPLAINT: Suicidal ideation, MRSA bacteremia, pain in his right forearm. HISTORY OF PRESENT ILLNESS: This is a 40-year-old homeless male with a past medical history significant for chronic alcohol abuse, chronic tobacco use, history of withdrawal seizures, history of chronic pancreatitis, history of major depressive disorder who was brought in on the after stating he had suicidal ideations. He was brought in by the [place] [employer]. He states that he has been having a productive cough for the past 3-4 weeks which has mostly been yellowish green in nature. He cannot recall if he has had fevers or shaking chills. He denies any drenching night sweats. He states that he has been around people who have been sick with respiratory symptoms over the past several months. He also complains of right forearm pain. He states that he has had a couple of peripheral IVs in that side and now the area is swollen and tender. On admit, his white blood cell count was normal. He had a low-grade temperature at the time, but then spiked to 38.2 on the . He came in with elevated LFTs with an alcohol level of 307. He states he drinks half a gallon of whiskey daily. Blood cultures x2 sets were drawn on the and all bottles are growing out MRSA. He was started on vancomycin yesterday. Chest x-ray on admission showed chronic airway disease with no evidence of pneumonia. Progressively over the week, however, he developed a left lower lobe infiltrate noted. He also had a head CT done which showed severe bilateral pansinusitis. Otherwise, no acute hemorrhage, hydrocephalus, or mass effect within the brain. He had an abdominal CT done which showed mild pancreatitis with chronic enlargement of the appendix with hepatomegaly and fatty infiltration. He has also complained of some right second toe pain. Previously, he did have frostbite at the site. He does not have any redness of that, but he states the tip of the toe is quite painful. Infectious Disease is now consulted for further evaluation and opinion. PAST MEDICAL HISTORY: Significant for alcoholism with a history of alcohol withdrawal, major depressive disorder, frostbite involving his right toes, history of chronic pancreatitis, history of hand cellulitis and abscess last year. PAST SURGICAL HISTORY: Significant for an I and D of the hand in April of 2016. ALLERGIES: No known drug allergies. SOCIAL HISTORY: He smokes 2 packs a day. He drinks half a gallon of whiskey a day. He uses marijuana intermittently. He denies any illicit drugs like heroin and cocaine. He is homeless. FAMILY HISTORY: He is adopted so he does not know his family history. PHYSICAL EXAMINATION: VITAL SIGNS: Temperature current 36.7, T-max 38.2 two days ago, pulse is 78, blood pressure 125/84, respiratory rate is 14, saturation 95% on room air. GENERAL: He is resting in bed, in no acute respiratory distress. Awake, alert, oriented x3. HEENT: Head is normocephalic , atraumatic. Eyes: He has conjunctival injection, right greater than left. Oropharynx with poor dentition. No thrush appreciated. CARDIOVASCULAR: S1, S2. Regular rate and rhythm. RESPIRATORY: Coarse breath sounds at the left base. ABDOMEN: Positive bowel sounds in all 4 quadrants. Soft. Mild tenderness in the right upper quadrant without guarding. EXTREMITIES: He has tattoos noted especially over his lower extremities. His feet have no evidence of cellulitis; however, he does have some mild erythema at the distal tip of the 2nd toe with pain on palpation. Other pertinent findings: Right forearm with swelling, induration, mild erythema and tenderness to palpation. He has peripheral IVs at that site. MUSCULOSKELETAL: No obvious other joint effusions appreciated. SKIN: As above. LABORATORY DATA: White blood cell count is 6.4, hemoglobin 10.9, platelets are 125, neutrophil count is 47%. Sodium 134, potassium 4.1, chloride 102, bicarb 22, BUN 9, creatinine is 5, AST 11, ALT 17, alkaline phosphatase 226, total bilirubin 3.3. Urinalysis with negative nitrites, negative leukocyte esterases. On admission, ethyl alcohol was 307 with positive marijuana and benzos on a tox screen. Negative influenza A, B, PCR. Microbiology: Blood cultures x2 sets on 09/27/2016, with all bottles showing MRSA. ASSESSMENT: 1. Methicillin-resistant Staphylococcus aureus bacteremia. 2. Right forearm swelling and induration, likely peripheral IV-induced phlebitis with possible underlying abscess. 3. Severe bilateral pansinusitis. 4. Left lower lobe pneumonia. 5. History of recent frostbite with pain at the tip of the distal 2nd right toe. PLAN: Patient is currently on vancomycin which I will continue for now. We will check a trough prior to the 4th dose. Possible potential sources include right forearm where he has peripheral IVs in place where there is evidence of phlebitis with a possible underlying abscess. We will check an ultrasound to further evaluate. We will also check an x-ray of his right great toe to further evaluate for possible underlying osteomyelitis. Other possible potential sources could be from his pansinusitis or pneumonia as well. Check a sputum culture for further evaluation and would check a transthoracic echocardiogram as well to further evaluate. Will order follow up blood cultures for tomorrow. Plan of care was discussed with the patient. Care coordinated with the nurses. Thank you very much for allowing us the opportunity to care for your patient in consultation. /[id number]/MODL MTDD
--- NOTE | 2016-09-29 10:58 | ECHO ---
[id number] + + [id number] : : [place] [address] : : [phone] + + Adult Echocardiographic Report + -------+ :Name: RAYRAY FLORES HStudy Date: 09/29/2016 09:38 AM BP: 124/85 mmH g : : Hospital Admission Number: [id number] Locati on: 251: :: 1975 Gender: Male Height: 67 in : :Age: 40 yrs Race: WH Weight: 158 lb : :Reason For Study: r/o endocarditis : : BSA: 1.8 meter s2 : :History: MRSA sepsis : + -------+ MMode/2D Measurements & Calculations IVSd: 0.93 cm RVDd: 3.6 cm FS: 31.9 % Ao root diam: LVPWd: 0.94 cm LVIDd: 4.6 cm EDV(Teich): 3.1 cm LVIDs: 3.2 cm 99.5 ml LA dimension: ESV(Teich): 3.1 cm 39.7 ml EF(Teich): 60.0 % LVLd ap4: 10.5 cm SV(MOD-sp4): EDV(MOD-sp4): 111.0 ml 156.0 ml LVLs ap4: 7.8 cm ESV(MOD-sp4): 45.0 ml EF(MOD-sp4): 71.2 % Normal Measurement Values: + + :LVIDd (3.5-5.7cm) IVSd (0.6-1.1cm) LVPWd (0.6-1.1cm) Aortic Root (2.0-3.7cm)Left Atrium (1.5-4.0cm): :LV Vol(d) (76-115ml) LV Vol(s) (29-48ml) Ejec Fraction (50-65%)PV Eyad (0.6- 1.2m/s) TV Eyad (0.4-1.0m/s) : :MV E Eyad (0.8-1.0m/s)MV A Eyad (0.3-1.0m/s)LVOT Eyad (0.7-1.2m/s) Asc Ao Eyad ( 0.9-1.8m/s) : + + Doppler Measurements & Calculations MV E max eyad: Ao V2 max: LV V1 max: PA V2 max: 93.8 cm/sec 120.2 cm/sec 92.3 cm/sec 95.6 cm/sec MV A max eyad: Ao max P.8 mmHg LV V1 max PG: PA max P.3 cm/sec 3.4 mmHg 3.7 mmHg MV E/A: 1.7 MV dec time: 0.29 sec Left Ventricle The left ventricle is normal in size and function. There is normal left ventricular wall thickness. Ejection Fraction = 70%. No regional wall motion abnormalities noted. Right Ventricle The right ventricle is normal in size and function. Atria The left atrial size is normal. Right atrial size is normal. Mitral Valve The mitral valve is normal in structure and function. There is no vegetation seen on the mitral valve. There is no mitral valve stenosis. There is mild mitral regurgitation. Tricuspid Valve The tricuspid valve is normal in structure and function. There is no tricuspid valve vegetation. There is no tricuspid stenosis. There is trace tricuspid regurgitation. Aortic Valve The aortic valve is trileaflet. There is no aortic valvular vegetation. There is no aortic stenosis. There is no aortic insufficiency. Pulmonic Valve The pulmonic valve is not well visualized. Great Vessels The aortic root is normal size. Pericardium/Pleural There is no pericardial effusion. Conclusion A two-dimensional transthoracic echocardiogram with M-mode and Doppler was performed. There is no evidence of a mass or vegetation. This does not rule out endocarditis. The left ventricle is normal in size and function. Ejection Fraction = 70%. There is mild mitral regurgitation. There is trace tricuspid regurgitation. Final Reading Physician: Trell Nowak signed on 09/29/2016 10:57 AM Ordering Physician: Daja Spain Performed By: Anastasiya Srivastava
--- NOTE | 2016-09-29 11:32 | DX ---
Right foot, 3 views. History: right 2nd distal toe pain. mild erythema. history of cardenas bite. Comparison examination: July 29, 2016. Findings: No fracture identified. Normal alignment. Joint spaces are maintained. Soft tissues jasmyn ear unremarkable. Impression: Negative right foot radiographs.
--- NOTE | 2016-09-29 15:15 | HOSPPROG ---
Hospitalist Progress Note Assessment/Plan: * Etoh withdrawal -wean benzos to off * MRSA severe sepsis -IV Vanco -possible sources - IV phlebitis/abscess vs. right foot recent frostbite vs. PNA vs. sinusitis -TTE without vegetation * Severe sinusitis -Flonase, IV Invanz * Aspiration PNA with acute respiratory failure -IV Invanz * Etoh hepatitis * Etoh pancreatitis - smoldering * Suicidal ideation - M1 -patient contracted for safety while in hospital - keep ICU -resume M1 hold when approaching discharge or if tries to leave AMA * Thrombocytopenia - due to ETOH/liver disease * Pulmonary nodule - outpatient follow-up - CXR 6 months * Restless legs - add Requip Subjective: No new complaints. Objective: Vital Signs Temp Pulse Resp BP Pulse Ox 36.8 C 73 19 126/79 H 96 09/29/16 11:57 09/29/16 14:00 09/29/16 14:00 09/29/16 14:00 09/29/16 11:57 Microbiology 09/27/16 17:45 Blood Panel (PCR) - Final Blood MRSA Laboratory Results 09/29/16 06:06 09/29/16 06:06 09/28/16 09/29/16 09/30/16 05:59 05:59 05:59 Intake Total 3884 1000 Output Total 200 Balance 3684 1000 PT 14.7 SEC (12.0-15.0) 09/24/16 03:15 INR 1.15 (0.83-1.16) 09/24/16 03:15 ECHO: no vegetation Foot xray : no osteo d/w Dr. Sherman Crooks ICU rounds - Physical Exam Constitutional: no apparent distress, appears nourished, not in pain Cardiovascular: regular rate and rhythym, no murmur, rub, or gallop Respiratory: no respiratory distress, no rales or rhonchi, clear to auscultation Gastrointestinal: normoactive bowel sounds, soft, non-tender abdomen, no palpable masses Musculoskeletal: full muscle strength, no muscle tenderness, normal joint ROM Neurologic: AAOx3, sensation intact bilaterally Psychiatric: interacting appropriately, not anxious, not encephalopathic, thought process linear ICD10 Worksheet Patient Problems: Problems Problem Status Diagnosed Alcohol withdrawal Acute Alcoholic hepatitis Acute Alcoholic ketoacidosis Acute Cellulitis and abscess of hand Acute Suicidal ideation Acute Alcohol withdrawal seizure Acute Metabolic acidosis Acute Pancreatitis Acute
--- NOTE | 2016-09-29 15:24 | PDINTPN ---
[employer] Progress Note Assessment/Plan: Assessment: Chronic alcohol abuse. ETOH withdrawal, resolved. Alcoholic hepatitis, chronic pancreatitis, bone marrow suppression, including thrombocytopenia (improved). Abdominal pain likely secondary to alcoholic hepatitis and swollen/enlarged liver, as well as chronic pancreatitis. Probable COPD, history of ongoing tobacco abuse. On nebulized treatments. Has left patchy basilar pneumonia, possibly MRSA , possibly aspiration MRSA bacteremia. Question pulmonary source, versus other. No obvious cellulitis related to his feet or right upper extremity were is complaining of pain. Sinusitis. On antibiotics, topical therapies. Suicidal ideation. Off hold. Has a contract with nursing regarding not hurting himself. Still reports depression/suicidal thoughts, no plans. Metabolic: On replacement protocols. DVT prophylaxis: SCDs. Lovenox can be given now the platelets have improved.. Plan: Continue care in ICU. Continue Ertapenem and vancomycin. Can d/c CIWA protocol, benzos unless needed. Continue nebulized treatments and nasal therapy. Follow chest x-ray intermittently, laboratory. Right upper extremity venous ultrasound ordered. Subjective: Says he is doing okay. Denies significant shortness of breath. Has some abdominal discomfort. Complains of foot pain but this is been a problem for a number weeks, and he reports frostbite when it was cold 3-4 weeks ago. Has some right forearm pain when touched. Objective: Vital Signs Temp Pulse Resp BP Pulse Ox 36.8 C 73 19 126/79 H 96 09/29/16 11:57 09/29/16 14:00 09/29/16 14:00 09/29/16 14:00 09/29/16 11:57 Microbiology 09/27/16 17:45 Blood Panel (PCR) - Final Blood MRSA Laboratory Results 09/29/16 06:06 09/29/16 06:06 09/28/16 09/29/16 09/30/16 05:59 05:59 05:59 Intake Total 3884 1000 Output Total 200 Balance 3684 1000 PT 14.7 SEC (12.0-15.0) 09/24/16 03:15 INR 1.15 (0.83-1.16) 09/24/16 03:15 Laboratory Tests 09/29/16 06:06 Calcium 8.2 L Ionized Calcium 1.09 L Phosphorus 4.5 D Magnesium 2.0 Conjugated Bilirubin 2.3 H AST 211 H ALT 117 H Albumin 2.9 L CXR: Patchy retrocardiac infiltrate present. Foot films: Negative. Physical Exam - Physical Exam General Appearance: alert, no apparent distress EENT: PERRL/EOMI, other (On room air) Neck: supple, normal inspection (No JVD) Respiratory: decreased breath sounds (Some congestion, rales at the left base, some wheezes), rales, rhonchi (Central), wheezing Cardiac/Chest: regular rate, rhythm Abdomen: normal bowel sounds, soft, hepatomegaly, No non-tender (Mild tenderness ) Skin: warm/dry Extremities: pedal edema, other (No erythema, edema, or cords of the right upper extremity that I can find. He is tender to palpation in the mid/lower forearm. Feet are dirty, some tenderness present, no obvious cellulitis) Neuro/Psych: no motor/sensory deficits, depressed affect, No cognition abnormalities ICD10 Worksheet Patient Problems: Problems Problem Status Diagnosed Alcohol withdrawal Acute Alcoholic hepatitis Acute Alcoholic ketoacidosis Acute Cellulitis and abscess of hand Acute Suicidal ideation Acute Alcohol withdrawal seizure Acute Metabolic acidosis Acute Pancreatitis Acute
[2016-09-29] MEDS: ENOXAPARIN 40 MG/0.4 ML SYR SC SCH (16:12)
--- NOTE | 2016-09-29 16:29 | US ---
Ultrasound of Right Upper Extremity History: Midlateral forearm redness. Findings: Ultrasound imaging of the right forearm midlateral aspect in the region of previous IV demo nstrates thrombosed basilic vein from the midforearm to the wrist region. Impression: 1. Thrombosed right basilic vein in the forearm region. 2. Recommend complete venous Doppler imaging of the right upper extremity.
[2016-09-29] MEDS: LORazepam 1 MG TAB PO PRN (23:08)
[2016-09-30] MEDS: VANCOMYCIN 1.25 GM in D5W 250 ML IV SCH ×2 (00:29→12:29)
[2016-09-30] MEDS: oxyCODONE IR 5 MG TAB PO PRN (05:13)
[2016-09-30] MEDS: LORazepam 1 MG TAB PO PRN (05:13)
[2016-09-30 05:23] LABS: IONIZED CALCIUM 1.15 MMOL/L (1.12-1.30)
[2016-09-30 05:41] LABS: ANION GAP 11 mEq/L (8-16); CALCIUM 8.6 mg/dL (8.5-10.4); CARBON DIOXIDE 22 mEq/l (22-31); CHLORIDE 102 mEq/L (97-110); CREATININE 0.5 mg/dL (0.7-1.3); GLOMERULAR FILTRATION RATE > 60; GLUCOSE 95 mg/dL (70-100); MAGNESIUM 1.9 mg/dL (1.6-2.3); POTASSIUM 4.5 mEq/L (3.5-5.2); SODIUM 135 mEq/L (134-144)
[2016-09-30 05:42] LABS: ADD DIFF? YES; ADD MORPH? NO; ADD SCAN? YES; ATYPICAL LYMPHOCYTE FLAG 50 (0-99); FRAGMENT RBC FLAG 10 (0-99); HEMATOCRIT 33.4 % (40.0-51.0); HEMOGLOBIN 11.6 g/dL (13.7-17.5); LEFT SHIFT FLG 70 (0-99); LIPEMIA HEMOLYSIS FLAG 90 (0-99); MEAN CELL HEMOGLOBIN 34.6 pg (27.9-34.1); MEAN CELL HEMOGLOBIN CONCENTR. 34.7 g/dL (32.4-36.7); MEAN CELL VOLUME 99.7 fL (81.5-99.8); MEAN PLATELET VOLUME 11.7 fL (8.7-11.7); PLATELET COUNT 183 10^3/uL (150-400); RED BLOOD CELL COUNT 3.35 10^6/uL (4.40-6.38); RED CELL DISTRIBUTION WIDTH 19.2 % (11.5-15.2)
[2016-09-30 05:47] LABS: PLATELET CLUMPS FLAG 170 (0-99)
[2016-09-30 06:20] LABS: HYPOCHROMIA 1+; LARGE PLATELETS PRESENT; MACROCYTES 1+; MICROCYTES 1+; PLATELET ESTIMATE ADEQUATE (ADEQ); POLYCHROMASIA 1+
[2016-09-30 07:16] LABS: SCAN NEGATIVE; SEDIMENTATION RATE 78 MM/HR (0-15)
[2016-09-30] MEDS: FOLIC ACID 1 MG TAB PO SCH (08:21)
[2016-09-30] MEDS: ENOXAPARIN 40 MG/0.4 ML SYR SC SCH (08:21)
[2016-09-30] MEDS: MULTIVITAMINS 1 EACH TAB PO SCH (08:21)
[2016-09-30] MEDS: POTASSIUM CL 20 MEQ TAB PO SCH (08:21)
[2016-09-30] MEDS: THIAMINE HCL 100 MG TAB PO SCH (08:21)
[2016-09-30] MEDS: ERTAPENEM 1 GM in NS 100 ML IV SCH (08:22)
[2016-09-30] MEDS: FLUTICASONE NASAL 120 SPRAYS/16 GM MDI EACHNARE SCH (08:22)
[2016-09-30] MEDS: SODIUM CL NASAL 45 ML BTL EACHNARE SCH ×2 (08:23→19:54)
[2016-09-30] MEDS: OXYMETAZOLINE 30 ML NASAL SPRAY EACHNARE SCH (08:23)
[2016-09-30] MEDS: NICOTINE 14 MG/24 HR PATCH TD SCH (08:55)
--- NOTE | 2016-09-30 09:38 | WOCRNPDOC ---
WOCRN Advanced Assessment Note - Skin Integrity Problem, Advanced Assess Bilateral Foot Dressing Type: Open to Air Skin Integrity Problem Comment: Bilateral feet callouses are visible. Areas where there were small wounds/callouses and perhaps minor frostbite are begining to shed. Treat with Dimethicone lotion BID to feet but not between toes. Halina ROCHA in room. Please reconsult prn.
--- NOTE | 2016-09-30 10:40 | PDINTPN ---
Business Libr[employer] Progress Note Assessment/Plan: Assessment/Plan: * Chronic alcohol abuse. * ETOH withdrawal, resolved. * Alcoholic hepatitis, chronic pancreatitis, bone marrow suppression, including thrombocytopenia (improved). Alcoholic hepatitis and swollen/enlarged liver, as well as chronic pancreatitis. * Probable COPD, history of ongoing tobacco abuse. On nebulized treatments. * Basilar pneumonia, possibly MRSA , possibly aspiration * MRSA bacteremia. Question pulmonary source, versus other. No obvious cellulitis related to his feet or right upper extremity were is complaining of pain. -Cont vanco/ertapenem * Sinusitis. On antibiotics, topical therapies. * Suicidal ideation. Off hold. Has a contract with nursing regarding not hurting himself. Still reports depression/suicidal thoughts, no plans. -psych to see * Metabolic: On replacement protocols. * DVT prophylaxis: SCDs. Lovenox can be given now the platelets have improved.. Subjective: Comfortable. Objective: Vital Signs Temp Pulse Resp BP Pulse Ox 37.1 C 61 14 108/61 98 09/30/16 00:00 09/30/16 06:00 09/30/16 06:00 09/30/16 06:00 09/30/16 06:00 Microbiology 09/27/16 17:55 Blood Culture - Final Blood MRSA 09/27/16 17:45 Blood Culture - Final Blood MRSA Blood Panel (PCR) - Final MRSA Laboratory Results 09/30/16 05:00 09/30/16 05:00 09/29/16 09/30/16 10/01/16 05:59 05:59 05:59 Intake Total 1000 2552 Balance 1000 2552 PT 14.7 SEC (12.0-15.0) 09/24/16 03:15 INR 1.15 (0.83-1.16) 09/24/16 03:15 Physical Exam - Physical Exam General Appearance: WD/WN, alert, no apparent distress EENT: PERRL/EOMI, normal ENT inspection, pharynx normal, TMs normal Neck: non-tender, full range of motion, supple, normal inspection Respiratory: crackles (few), prolonged expiration, No respiratory distress, No wheezing Cardiac/Chest: normal peripheral pulses, regular rate, rhythm Peripheral Pulses: 2+: carotid (R), carotid (L), femoral (R), femoral (L), dorsalis-pedis (R), dorsalis-pedis (L) Abdomen: normal bowel sounds, non-tender, soft Male Genitalia: deferred Rectal: deferred Skin: normal color, warm/dry ICD10 Worksheet Patient Problems: Problems Problem Status Diagnosed Alcohol withdrawal Acute Alcoholic hepatitis Acute Alcoholic ketoacidosis Acute Cellulitis and abscess of hand Acute Suicidal ideation Acute Alcohol withdrawal seizure Acute Metabolic acidosis Acute Pancreatitis Acute
[2016-09-30] MEDS ORDERED: OXYMETAZOLINE 30 ML NASAL SPRAY EACHNARE PRN (12:22)
--- NOTE | 2016-09-30 13:51 | HOSPPROG ---
Hospitalist Progress Note Assessment/Plan: * Etoh withdrawal -resolved - DC benzos * MRSA severe sepsis -IV Vanco -possible sources - IV phlebitis vs. right foot recent frostbite vs. PNA vs. sinusitis -TTE without vegetation * Severe sinusitis -Flonase, IV Invanz * Aspiration PNA with acute respiratory failure -IV Invanz * Etoh hepatitis * Etoh pancreatitis - smoldering * Suicidal ideation - M1 - still suicidal -patient contracted for safety while in hospital - keep ICU -consult psych - anticipate discharge with IV antibiotics - needing SNF * Thrombocytopenia - due to ETOH/liver disease -improving * Pulmonary nodule - outpatient follow-up - CXR 6 months * Restless legs - add Requip * Superficial thrombophlebitis -check full US arm Subjective: no new complaints. Objective: Vital Signs Temp Pulse Resp BP Pulse Ox 37.1 C 73 23 H 108/61 92 09/30/16 00:00 09/30/16 12:00 09/30/16 10:00 09/30/16 12:00 09/30/16 10:00 Microbiology 09/27/16 17:55 Blood Culture - Final Blood MRSA 09/27/16 17:45 Blood Culture - Final Blood MRSA Blood Panel (PCR) - Final MRSA Laboratory Results 09/30/16 05:00 09/30/16 05:00 09/29/16 09/30/16 10/01/16 05:59 05:59 05:59 Intake Total 1000 2552 Balance 1000 2552 PT 14.7 SEC (12.0-15.0) 09/24/16 03:15 INR 1.15 (0.83-1.16) 09/24/16 03:15 d/w Dr. leija ICU rounds - needs ICU because of ongoing suicidal ideation - Physical Exam Constitutional: no apparent distress, appears nourished, not in pain Cardiovascular: regular rate and rhythym, no murmur, rub, or gallop Respiratory: no respiratory distress, no rales or rhonchi, clear to auscultation Gastrointestinal: normoactive bowel sounds, soft, non-tender abdomen, no palpable masses Skin: no rashes or abrasions, no fluctuance, no induration Neurologic: AAOx3, sensation intact bilaterally Psychiatric: interacting appropriately, not anxious, not encephalopathic, thought process linear ICD10 Worksheet Patient Problems: Problems Problem Status Diagnosed Alcohol withdrawal Acute Alcoholic hepatitis Acute Alcoholic ketoacidosis Acute Cellulitis and abscess of hand Acute Suicidal ideation Acute Alcohol withdrawal seizure Acute Metabolic acidosis Acute Pancreatitis Acute
--- NOTE | 2016-09-30 13:57 | SOAPPROG ---
SOAP Progress Note Assessment/Plan: 10/02/16 14:07 Assessment: Psych consult -full dictation to follow Pt is 40 y/o S C male with a long hx of alcoholism who reports a long hx of depression. Pt had a recent psych hosp in [facility] and was put on an antidepressant but was taken off of it at the [facility]. Pt was sober for 1.5 years 4 -5 years ago and states he was depressed during that time. He endorsed current sx of MDD such as impaired sleep and appetite, depressed mood with SI but no plan or intent, tearfulness. He currently has MRSA and he was admitted for electrolyte imbalance and increased LFT's. Impression: MDD-rec without psychosis PTSD Alcohol USe Disorder-severe currently not suicidal and does not need an M1 Plan:Pt agrees to trial of Lexapro for PTSD and depression and Trazodone for sleep Pt states he wants to get sober as if he drinks his depression cannot be treated. 09/30/16 13:57 Subjective: c/o depression for many years Objective: Vital Signs Temp Pulse Resp BP Pulse Ox 37.1 C 73 23 H 108/61 92 09/30/16 00:00 09/30/16 12:00 09/30/16 10:00 09/30/16 12:00 09/30/16 10:00 Microbiology 09/27/16 17:55 Blood Culture - Final Blood MRSA 09/27/16 17:45 Blood Culture - Final Blood MRSA Blood Panel (PCR) - Final MRSA Laboratory Results 09/30/16 05:00 09/30/16 05:00 09/29/16 09/30/16 10/01/16 05:59 05:59 05:59 Intake Total 1000 2552 Balance 1000 2552 PT 14.7 SEC (12.0-15.0) 09/24/16 03:15 INR 1.15 (0.83-1.16) 09/24/16 03:15 Pt is A+O x4 mood-depressed affect-appr no S/H I no A/V H + veg sx depression thoughts-logical no sx of psychosis/morena +initial insomnia variable appetite no delusions memory-fair I/J-fair - Time Spent With Patient Time Spent With Patient: 50' - Pending Discharge Pending Discharge Within 24 Hours: No Pending Discharge Within 48 Hours: No ICD10 Worksheet Patient Problems: Problems Problem Status Onset Alcohol withdrawal Acute Alcoholic hepatitis Acute Alcoholic ketoacidosis Acute MRSA (methicillin resistant Staphylococcus aureus) Acute Suicidal ideation Acute Alcohol withdrawal seizure Acute Cellulitis and abscess of hand Acute Metabolic acidosis Acute Pancreatitis Acute
--- NOTE | 2016-09-30 14:35 | PCMIDPN ---
Assessment/Plan: Assessment: MRSA bacteremia-unclear source. Possibly secondary to a peripheral septic thrombophlebitis from an IV site at his right upper extremity. Patient is covered with vancomycin. He is tolerating the medication without problem. Clinically looks like he is improving. Plan: 1. Continue IV vancomycin. 2. Check trough levels. 3. Follow repeat blood cultures. 09/30/16 17:18 Subjective: Patient is resting comfortably in his hospital bed. No specific new complaint. He states he is feeling better. Objective: Vancomycin #2 Vital Signs Temp Pulse Resp BP Pulse Ox 37.1 C 73 23 H 108/61 92 09/30/16 00:00 09/30/16 12:00 09/30/16 10:00 09/30/16 12:00 09/30/16 10:00 Microbiology 09/27/16 17:55 Blood Culture - Final Blood MRSA 09/27/16 17:45 Blood Culture - Final Blood MRSA Blood Panel (PCR) - Final MRSA Laboratory Results 09/30/16 05:00 09/30/16 05:00 09/29/16 09/30/16 10/01/16 05:59 05:59 05:59 Intake Total 1000 2552 Balance 1000 2552 ESR 78 MM/HR (0-15) H 09/30/16 05:00 - Physical Exam General Appearance: WD/WN, alert, no apparent distress, non-toxic Respiratory: lungs clear, normal breath sounds, No respiratory distress Cardiac/Chest: regular rate, rhythm, No tachycardia Extremities: No non-tender, No normal inspection (Right upper extremity induration) Skin: normal color, warm/dry, No rash Neuro/Psych: alert, normal mood/affect, oriented x 3 ICD10 Worksheet Patient Problems: Problems Problem Status Diagnosed Alcohol withdrawal Acute Alcoholic hepatitis Acute Alcoholic ketoacidosis Acute Cellulitis and abscess of hand Acute Suicidal ideation Acute Alcohol withdrawal seizure Acute Metabolic acidosis Acute Pancreatitis Acute
[2016-09-30] MEDS: ESCITALOPRAM OXALATE 10 MG TAB PO SCH (14:39)
--- NOTE | 2016-09-30 16:31 | US ---
Right Upper Extremity Ultrasound with Duplex Doppler History: Basilic vein clot, assess for DVT. Comparison: Limited right upper extremity ultrasound September 29, 2016. Technique: The veins of the right neck and upper extremity are assessed with grayscale and Doppler ul trasound with compression of accessible vein segments. Findings: As seen previously, the basilic vein is thrombosed in the distal forearm. The right interna l jugular, subclavian, axillary, cephalic, paired brachial and radial and ulnar veins are patent, wit h normal color Doppler appearance and waveforms. Accessible deep vein segments are compressible. Impression: 1. Thrombosis of the basilic vein in the distal forearm. 2. No evidence of DVT.
[2016-09-30] MEDS: ACETAMINOPHEN 325 MG TAB PO PRN (19:45)
[2016-09-30] MEDS: traZODone 100 MG TAB PO SCH (19:45)
[2016-10-01] MEDS: VANCOMYCIN 1.25 GM in D5W 250 ML IV SCH ×2 (00:09→14:14)
[2016-10-01 08:18] LABS: IONIZED CALCIUM 1.12 MMOL/L (1.12-1.30)
[2016-10-01] MEDS: MULTIVITAMINS 1 EACH TAB PO SCH (10:02)
[2016-10-01] MEDS: ERTAPENEM 1 GM in NS 100 ML IV SCH (10:02)
[2016-10-01] MEDS: POTASSIUM CL 20 MEQ TAB PO SCH (10:02)
[2016-10-01] MEDS: THIAMINE HCL 100 MG TAB PO SCH (10:03)
[2016-10-01] MEDS: FOLIC ACID 1 MG TAB PO SCH (10:03)
[2016-10-01] MEDS: ESCITALOPRAM OXALATE 10 MG TAB PO SCH (10:03)
[2016-10-01] MEDS: ENOXAPARIN 40 MG/0.4 ML SYR SC SCH (10:07)
[2016-10-01] MEDS: FLUTICASONE NASAL 120 SPRAYS/16 GM MDI EACHNARE SCH (13:38)
[2016-10-01] MEDS: SODIUM CL NASAL 45 ML BTL EACHNARE SCH ×3 (13:39→22:30)
[2016-10-01] MEDS: NICOTINE 14 MG/24 HR PATCH TD SCH (13:41)
--- NOTE | 2016-10-01 15:19 | PCMIDPN ---
Assessment/Plan: #MRSA bacteremia with right upper extremity superficial thrombophlebitis from prior IV site, likely source of bacteremia: Last HIV test negative in 04/2016, transthoracic echo without evidence of endocarditis . No new labs today -- await repeat blood cultures from yesterday to assess for clearance. If persistent bacteremia will pursue COLLEEN -- Vanco trough was 8. Increase vancomycin dose slightly to 1 g IV Q 8 -- plan approximately 2 weeks of IV antibiotics # left lower lobe infiltrate on chest x-ray, with normal O2 sats and minimal respiratory symptoms currently, s/p 4 days of ertapenem microbiology # transaminitis likely due to alcohol microbiology 09/30 blood cultures (2): Pending 09/27 blood cultures (2): MRSA medication Vancomycin 1.25 g IV Q 12, # 2 Ertapenem 1 g IV daily, # 4 Subjective: patient is frustrated because of multiple visits from nursing staff and physicians. Feels tired and can't get any sleep. Objective: Vital Signs Temp Pulse Resp BP Pulse Ox 36.9 C 66 18 112/74 91 L 10/01/16 08:07 10/01/16 08:07 10/01/16 08:07 10/01/16 08:07 10/01/16 08:07 Laboratory Results 09/30/16 05:00 09/30/16 05:00 09/30/16 10/01/16 10/02/16 05:59 05:59 05:59 Intake Total 2552 250 Output Total 400 Balance 2552 -150 ESR 78 MM/HR (0-15) H 09/30/16 05:00 - Physical Exam General Appearance: alert, no apparent distress, other ( disheveled) EENT: poor dentition, No thrush Respiratory: lungs clear Neck: supple Cardiac/Chest: regular rate, rhythm, systolic murmur ( faint) Extremities: other ( multiple tattoos), No swelling Abdomen: non-tender, soft Skin: No rash, No embolic lesions Neuro/Psych: alert, oriented x 3 - Line/s PIV Lines: other ( left forearm), No drainage, No erythema ICD10 Worksheet Patient Problems: Problems Problem Status Onset Alcohol withdrawal Acute Alcoholic hepatitis Acute Alcoholic ketoacidosis Acute MRSA (methicillin resistant Staphylococcus aureus) Acute Suicidal ideation Acute Alcohol withdrawal seizure Acute Cellulitis and abscess of hand Acute Metabolic acidosis Acute Pancreatitis Acute
--- NOTE | 2016-10-01 16:08 | HOSPPROG ---
Hospitalist Progress Note Assessment/Plan: * Etoh withdrawal -resolved - DC benzos * MRSA severe sepsis - due to septic thrombophlebitis arm -TTE without vegetation - COLLEEN only if BC persistent positive -IV Vanco - likely 2 weeks IV antibiotics needed -patient wishes to return to [facility] - d/w case management * Severe sinusitis -Flonase * Aspiration PNA with acute respiratory failure -IV Invanz - now off * Etoh hepatitis * Etoh pancreatitis - smoldering * Suicidal ideation -appreciate psych eval - no longer suicidal * Thrombocytopenia - due to ETOH/liver disease -improving * Pulmonary nodule - outpatient follow-up - CXR 6 months * Restless legs - Requip Subjective: No new complaints Objective: Vital Signs Temp Pulse Resp BP Pulse Ox 36.8 C 62 20 125/79 H 91 L 10/01/16 15:27 10/01/16 15:27 10/01/16 15:27 10/01/16 15:27 10/01/16 15:27 Laboratory Results 09/30/16 05:00 09/30/16 05:00 09/30/16 10/01/16 10/02/16 05:59 05:59 05:59 Intake Total 2552 250 Output Total 400 Balance 2552 -150 PT 14.7 SEC (12.0-15.0) 09/24/16 03:15 INR 1.15 (0.83-1.16) 09/24/16 03:15 - Physical Exam Constitutional: no apparent distress, appears nourished, not in pain Cardiovascular: regular rate and rhythym, no murmur, rub, or gallop Respiratory: no respiratory distress, no rales or rhonchi, clear to auscultation Gastrointestinal: normoactive bowel sounds, soft, non-tender abdomen, no palpable masses Musculoskeletal: full muscle strength, no muscle tenderness, normal joint ROM Neurologic: AAOx3, sensation intact bilaterally Psychiatric: interacting appropriately, not anxious, not encephalopathic, thought process linear ICD10 Worksheet Patient Problems: Problems Problem Status Onset Alcohol withdrawal Acute Alcoholic hepatitis Acute Alcoholic ketoacidosis Acute MRSA (methicillin resistant Staphylococcus aureus) Acute Suicidal ideation Acute Alcohol withdrawal seizure Acute Cellulitis and abscess of hand Acute Metabolic acidosis Acute Pancreatitis Acute
[2016-10-01] MEDS: traZODone 100 MG TAB PO SCH (22:06)
[2016-10-01] MEDS: VANCOMYCIN HCL/NORMAL SALINE 250 ML IV SCH (22:06)
[2016-10-02 05:49] LABS: ABSOLUTE NRBC COUNT 0.02 10^3/uL (0-0.01); ADD DIFF? YES; ADD MORPH? NO; ADD SCAN? NO; ATYPICAL LYMPHOCYTE FLAG 60 (0-99); FRAGMENT RBC FLAG 0 (0-99); HEMOGLOBIN 11.3 g/dL (13.7-17.5); LEFT SHIFT FLG 60 (0-99); LIPEMIA HEMOLYSIS FLAG 90 (0-99); MEAN CELL HEMOGLOBIN 34.5 pg (27.9-34.1); MEAN CELL HEMOGLOBIN CONCENTR. 34.2 g/dL (32.4-36.7); MEAN CELL VOLUME 100.6 fL (81.5-99.8); MEAN PLATELET VOLUME 11.2 fL (8.7-11.7); NRBC-AUTO% 0.2 % (0.0-0.2); PLATELET CLUMPS FLAG 0 (0-99); PLATELET COUNT 307 10^3/uL (150-400); RED BLOOD CELL COUNT 3.28 10^6/uL (4.40-6.38); RED CELL DISTRIBUTION WIDTH 19.5 % (11.5-15.2)
[2016-10-02] MEDS: VANCOMYCIN HCL/NORMAL SALINE 250 ML IV SCH ×3 (06:06→22:15)
[2016-10-02 06:11] LABS: ALANINE AMINOTRANSFERASE 130 IU/L (21-72); ALBUMIN 3.4 g/dL (3.5-5.0); ALKALINE PHOSPHATASE 278 IU/L (38-126); ANION GAP 10 mEq/L (8-16); ASPARTATE AMINOTRANSFERASE 190 IU/L (17-59); BILIRUBIN,TOTAL 2.3 mg/dL (0.1-1.4); CALCIUM 8.9 mg/dL (8.5-10.4); CARBON DIOXIDE 23 mEq/l (22-31); CHLORIDE 103 mEq/L (97-110); CREATININE 0.5 mg/dL (0.7-1.3); GLOMERULAR FILTRATION RATE > 60; GLUCOSE 96 mg/dL (70-100); POTASSIUM 4.9 mEq/L (3.5-5.2); SODIUM 136 mEq/L (134-144); TOTAL PROTEIN 7.4 g/dL (6.3-8.2)
[2016-10-02 06:31] LABS: MACROCYTES 1+; POLYCHROMASIA 1+
[2016-10-02 06:32] LABS: LARGE PLATELETS PRESENT; PLATELET ESTIMATE ADEQUATE (ADEQ)
[2016-10-02 07:59] LABS: BILIRUBIN-CONJUGATED 1.4 mg/dL (0.0-0.5); BILIRUBIN-UNCONJUGATED 0.9 mg/dL (0.0-1.1)
[2016-10-02] MEDS: ENOXAPARIN 40 MG/0.4 ML SYR SC SCH (08:41)
[2016-10-02] MEDS: ESCITALOPRAM OXALATE 10 MG TAB PO SCH (08:41)
[2016-10-02] MEDS: MULTIVITAMINS 1 EACH TAB PO SCH (08:41)
[2016-10-02] MEDS: THIAMINE HCL 100 MG TAB PO SCH (08:42)
[2016-10-02] MEDS: NICOTINE 14 MG/24 HR PATCH TD SCH (08:42)
[2016-10-02] MEDS: FOLIC ACID 1 MG TAB PO SCH (08:42)
[2016-10-02] MEDS: SODIUM CL NASAL 45 ML BTL EACHNARE SCH ×2 (08:43→20:36)
[2016-10-02] MEDS: FLUTICASONE NASAL 120 SPRAYS/16 GM MDI EACHNARE SCH (08:43)
--- NOTE | 2016-10-02 09:10 | PCMIDPN ---
Assessment/Plan: #MRSA bacteremia with right upper extremity superficial thrombophlebitis from prior IV site, likely source of bacteremia: Last HIV test negative in 04/2016, transthoracic echo without evidence of endocarditis. --await repeat blood cultures from yesterday to assess for clearance. If persistent bacteremia will pursue COLLEEN --continue vancomycin 1 g IV Q 8, stop date is 10/11/16 --repeat vancomycin Trough today --likely need to keep in house to complete therapy # left lower lobe infiltrate on chest x-ray, ? aspiration, normal O2 sats and minimal respiratory symptoms currently, s/p 4 days of ertapenem # transaminitis likely due to alcohol, Hep serologies negative 07/2016. CT scan shows fatty infiltration of liver microbiology 09/30 blood cultures (2): NGTD 09/27 blood cultures (2): MRSA medication Vancomycin 1 g IV Q 8, # 3 Subjective: Patient appoint that phlebitis on right forearm is improving No diarrhea, no rash, still trouble sleeping overnight with multiple interruptions Patient is okay with completing IV antibiotic therapy in house Objective: Vital Signs Temp Pulse Resp BP Pulse Ox 36.6 C 86 16 111/82 H 91 L 10/02/16 08:00 10/02/16 08:00 10/02/16 08:00 10/02/16 08:00 10/02/16 08:00 Laboratory Results 10/02/16 05:34 10/02/16 05:34 10/01/16 10/02/16 10/03/16 05:59 05:59 05:59 Intake Total 250 420 Output Total 400 Balance -150 420 ESR 78 MM/HR (0-15) H 09/30/16 05:00 - Physical Exam General Appearance: alert, no apparent distress EENT: poor dentition, No scleral icterus Respiratory: lungs clear Neck: supple Cardiac/Chest: regular rate, rhythm, No systolic murmur Extremities: inflammation (Right lateral forearm consistent with superficial thrombophlebitis), No pedal edema Abdomen: non-tender, soft Skin: other (Multiple tattoos), No rash Neuro/Psych: no motor/sensory deficits, alert, normal mood/affect, oriented x 3 - Line/s PIV Lines: No drainage, No erythema - Time Spent With Patient Time Spent with Patient: greater than 25 minutes (coordination of care with Dr. Burris) Time Spent with Patient: Greater than 25 minutes spent on this patients care, greater than 50% of time spent counseling, educating, and coordinating care regarding the above mentioned plan. ICD10 Worksheet Patient Problems: Problems Problem Status Onset Alcohol withdrawal Acute Alcoholic hepatitis Acute Alcoholic ketoacidosis Acute MRSA (methicillin resistant Staphylococcus aureus) Acute Suicidal ideation Acute Alcohol withdrawal seizure Acute Cellulitis and abscess of hand Acute Metabolic acidosis Acute Pancreatitis Acute
[2016-10-02] MEDS: POTASSIUM CL 20 MEQ TAB PO SCH (12:08)
--- NOTE | 2016-10-02 15:15 | HOSPPROG ---
Hospitalist Progress Note Assessment/Plan: * Etoh withdrawal -resolved - DC benzos * MRSA severe sepsis - due to iatrogenic septic thrombophlebitis arm from IV site -TTE without vegetation - COLLEEN only if BC persistent positive -IV Vanco until 10/11/16 -per ID - do not feel comfortable discharge to street with PICC -keep inpatient until IV abx complete -try to maintain with peripheral IV only * Severe sinusitis -Flonase * Aspiration PNA with acute respiratory failure -IV Invanz - now off * Etoh hepatitis - improving * Etoh pancreatitis - smoldering * Suicidal ideation -appreciate psych eval - no longer suicidal * Thrombocytopenia - due to ETOH/liver disease -improving * Pulmonary nodule - outpatient follow-up - CXR 6 months * Restless legs - Requip Subjective: no new complaints. Objective: Vital Signs Temp Pulse Resp BP Pulse Ox 36.6 C 86 16 111/82 H 91 L 10/02/16 08:00 10/02/16 08:00 10/02/16 08:00 10/02/16 08:00 10/02/16 08:00 Laboratory Results 10/02/16 05:34 10/02/16 05:34 10/01/16 10/02/16 10/03/16 05:59 05:59 05:59 Intake Total 250 420 Output Total 400 Balance -150 420 PT 14.7 SEC (12.0-15.0) 09/24/16 03:15 INR 1.15 (0.83-1.16) 09/24/16 03:15 - Physical Exam Constitutional: no apparent distress, appears nourished, not in pain Cardiovascular: regular rate and rhythym, no murmur, rub, or gallop Respiratory: no respiratory distress, no rales or rhonchi, clear to auscultation Gastrointestinal: normoactive bowel sounds, soft, non-tender abdomen, no palpable masses Skin: warm, erythema, induration, other (septic thrombophlebitis right arm, improving) Neurologic: AAOx3, sensation intact bilaterally Psychiatric: interacting appropriately, not anxious, not encephalopathic, thought process linear ICD10 Worksheet Patient Problems: Problems Problem Status Onset Alcohol withdrawal Acute Alcoholic hepatitis Acute Alcoholic ketoacidosis Acute MRSA (methicillin resistant Staphylococcus aureus) Acute Suicidal ideation Acute Alcohol withdrawal seizure Acute Cellulitis and abscess of hand Acute Metabolic acidosis Acute Pancreatitis Acute
--- NOTE | 2016-10-02 15:19 | BCON ---
[f rep st] BEHAVIORAL HEALTH CONSULTATION PSYCHIATRIC CONSULTATION DATE OF CONSULTATION: 09/30/2016 REASON FOR CONSULTATION: Patient with depression and suicidal ideation, and alcoholism. HISTORY OF PRESENT ILLNESS: Patient is a 40-year-old single male, never , who is well known to the ED, who presented to the ED on an M1 hold, brought in by police with chief concern of suicidal ideation. Patient reported feeling suicidal for 2 days, stating he would borrow a friend's knife and slit his wrists. He denied homicidal ideation, or auditory or visual hallucinations. Patient has a long history of alcoholism, and has a past medical history significant for pancreatitis, alcohol hepatitis, alcohol dependence, PTSD, depression, thrombocytopenia, and microcytic anemia. The patient is chronically homeless. Patient has a history of alcohol withdrawal seizures. He reports drinking about 2-4 pints of whiskey daily up to a half a gallon a day and the morning of admission, only had 1 pint prior to arrival. Patient was found to have thrombocytopenia, electrolyte derangements, and elevated LFTs. He then was diagnosed with MRSA with sepsis. He has a history of hand cellulitis, abscess in April of 2016 and chronic pancreatitis. Patient currently reports depression and insomnia. He states that he was in a psychiatric hospital recently in [place] for 5 days and was put on medication; however, he was then transferred to the [facility] for alcohol treatment and was taken off his meds. Patient is a poor historian, so it is unclear whether this actually happened. He could not remember the name of the hospital. Patient reports a long history of depression; however, he has a long history of alcoholism as well. He does report a period of sobriety 3-4 years ago and states during that time of sobriety, his mood was depressed. 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 He states he is from [place]. PSYCHIATRIC HISTORY: Patient denies a history of suicide attempts in the past. He has had suicidal ideation. He states he was hospitalized in a hospital in [place] about 2 months ago for 5 days. He is unable to state what medications he has been on in the past. Patient reports a history of PTSD with flashbacks and nightmares due to watching a lot of friends when he was traveling around the country, such as trains running over people he knew, etc. SUBSTANCE ABUSE: Patient has a long history of alcoholism with history of rehab , sobriety times 1-1/2 years 4-5 years ago. History of alcohol withdrawal seizures. History of rehab x1 2 year ago in [place], Has been at the [facility] recently. He reports occasional marijuana use. MEDICAL HISTORY: As above. FAMILY HISTORY: Patient is adopted. SOCIAL HISTORY: Patient is from [place] and has never been and has no children. He has 2 biological sisters. He is homeless and on medicaid. He graduated HS. He was adopted so does not know his family history. He states he has adoptive family members in the [place] area and wants to return there. 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 He has watched many friends while out on the road being homeless, and states he suffers from PTSD from this. He has a long history of alcohol dependence. MENTAL STATUS: Patient is alert and oriented x4. Mood is depressed. Affect is appropriate to mood. Patient currently denies feeling suicidal or homicidal. Denies auditory or visual hallucinations. He has poor sleep, poor appetite, poor energy level. Thoughts logical and coherent. No symptoms of psychosis or morena. Does have initial insomnia, variable appetite, positive vegetative symptoms of depression. No delusions. Memory is fair. Insight and judgment are fair. IMPRESSION: 1. Major depressive disorder, recurrent. 2. Alcohol use disorder, severe. 3. Posttraumatic stress disorder. PLAN: Will start the patient on a trial of Lexapro for PTSD and depression 10 mg q.a.m. and trazodone 100 mg q.h.s. for sleep. He states he wants to get sober and he was told that if he continues to drink, his depression and PTSD will not be treated. He does not need an M1 as he is not suicidal. It will take a while for the meds to work for his mood and depression, and he can be referred to a psychiatrist wherever he ends up for outpatient treatment. Will continue to follow. /[id number]/MODL MTDD
[2016-10-02] MEDS: traZODone 100 MG TAB PO SCH (20:33)
[2016-10-03] MEDS: VANCOMYCIN HCL/NORMAL SALINE 250 ML IV SCH ×3 (05:26→22:25)
[2016-10-03] MEDS: ENOXAPARIN 40 MG/0.4 ML SYR SC SCH (08:53)
[2016-10-03] MEDS: SODIUM CL NASAL 45 ML BTL EACHNARE SCH ×2 (08:53→22:29)
[2016-10-03] MEDS: FOLIC ACID 1 MG TAB PO SCH (08:53)
[2016-10-03] MEDS: ESCITALOPRAM OXALATE 10 MG TAB PO SCH (08:53)
[2016-10-03] MEDS: THIAMINE HCL 100 MG TAB PO SCH (08:53)
[2016-10-03] MEDS: MULTIVITAMINS 1 EACH TAB PO SCH (08:53)
[2016-10-03] MEDS: FLUTICASONE NASAL 120 SPRAYS/16 GM MDI EACHNARE SCH (08:53)
[2016-10-03] MEDS: NICOTINE 14 MG/24 HR PATCH TD SCH (08:54)
--- NOTE | 2016-10-03 09:50 | PCMIDPN ---
Assessment/Plan: Assessment: MRSA bacteremia-unclear source. Possibly secondary to a peripheral septic thrombophlebitis from an IV site at his right upper extremity. Patient is covered with vancomycin. He is tolerating the medication without problem. He is clinically improved. Plan to treat with IV vancomycin through 10/11/2016 then continue on oral Bactrim at discharge. Plan: 1. Continue IV vancomycin. 2. Check trough levels. 3. Follow repeat blood cultures. Subjective: Patient is resting comfortably in his hospital bed. He has no particular complaints. Denies any abdominal pain. Denies any fevers or chills. No rash. Objective: Vancomycin #4 Vital Signs Temp Pulse Resp BP Pulse Ox 36.9 C 64 18 117/68 93 10/03/16 07:51 10/03/16 07:51 10/03/16 07:51 10/03/16 07:51 10/03/16 07:51 Laboratory Results 10/02/16 05:34 10/02/16 05:34 10/02/16 10/03/16 10/04/16 05:59 05:59 05:59 Intake Total 420 552 Balance 420 552 ESR 78 MM/HR (0-15) H 09/30/16 05:00 - Physical Exam General Appearance: WD/WN, alert, no apparent distress, non-toxic Respiratory: lungs clear, normal breath sounds, No respiratory distress Cardiac/Chest: regular rate, rhythm, No tachycardia Skin: normal color, warm/dry, No rash Neuro/Psych: alert, normal mood/affect, oriented x 3 ICD10 Worksheet Patient Problems: Problems Problem Status Onset Alcohol withdrawal Acute Alcoholic hepatitis Acute Alcoholic ketoacidosis Acute MRSA (methicillin resistant Staphylococcus aureus) Acute Suicidal ideation Acute Alcohol withdrawal seizure Acute Cellulitis and abscess of hand Acute Metabolic acidosis Acute Pancreatitis Acute
--- NOTE | 2016-10-03 13:15 | HOSPPROG ---
Hospitalist Progress Note Assessment/Plan: #MRSA bacteremia:(positive culture 09/27) suspect due to PIV. Cont IV Vancomycin #Etoh withdrawal: resolved #Aspiration PNA: completed abx # Hyperbilirubinemia: due to Etoh. #Transaminitis: due to Etoh, infection. CMP in morning #Lung nodule: repeat scan in 6 months #Sinusitis: flonase #Restless leg syndrome: requip #Suicidal ideation: evaluated by psych; no longer suicidal #Thrombocytopenia: resolved. Due to Etoh/infection #Diet: regular #DVT ppx: Lovenox #Disp: warrant inpt admission given MRSA bacteremia, IV abx Subjective: patient refused exam and labs today Objective: Vital Signs Temp Pulse Resp BP Pulse Ox 36.9 C 64 18 117/68 93 10/03/16 07:51 10/03/16 07:51 10/03/16 07:51 10/03/16 07:51 10/03/16 07:51 Laboratory Results 10/02/16 05:34 10/02/16 05:34 10/02/16 10/03/16 10/04/16 05:59 05:59 05:59 Intake Total 420 552 Balance 420 552 PT 14.7 SEC (12.0-15.0) 09/24/16 03:15 INR 1.15 (0.83-1.16) 09/24/16 03:15 Physical Exam: patient refused exam - Physical Exam Constitutional: no apparent distress Eyes: PERRL Ears, Nose, Mouth, Throat: moist mucous membranes Cardiovascular: regular rate and rhythym, no murmur, rub, or gallop Respiratory: no respiratory distress Gastrointestinal: normoactive bowel sounds Genitourinary: no bladder fullness Skin: warm Musculoskeletal: full muscle strength Neurologic: AAOx3 Psychiatric: interacting appropriately ICD10 Worksheet Patient Problems: Problems Problem Status Onset Alcohol withdrawal Acute Alcoholic hepatitis Acute Alcoholic ketoacidosis Acute MRSA (methicillin resistant Staphylococcus aureus) Acute Suicidal ideation Acute Alcohol withdrawal seizure Acute Cellulitis and abscess of hand Acute Metabolic acidosis Acute Pancreatitis Acute
[2016-10-03] MEDS: traZODone 100 MG TAB PO SCH (20:14)
[2016-10-04] MEDS: VANCOMYCIN HCL/NORMAL SALINE 250 ML IV SCH ×3 (05:18→21:44)
[2016-10-04 08:19] LABS: HEMATOCRIT 36.9 % (40.0-51.0); HEMOGLOBIN 12.3 g/dL (13.7-17.5); MEAN CELL HEMOGLOBIN 34.8 pg (27.9-34.1); MEAN CELL HEMOGLOBIN CONCENTR. 33.3 g/dL (32.4-36.7); MEAN CELL VOLUME 104.5 fL (81.5-99.8); RED BLOOD CELL COUNT 3.53 10^6/uL (4.40-6.38); RED CELL DISTRIBUTION WIDTH 19.1 % (11.5-15.2)
--- NOTE | 2016-10-04 08:21 | HOSPPROG ---
Hospitalist Progress Note Assessment/Plan: #MRSA bacteremia:(negative bld culture 09/30) suspect due to PIV. Cont IV Vancomycin #Etoh withdrawal: resolved #Aspiration PNA: completed abx # Hyperbilirubinemia: due to Etoh. #Transaminitis: due to Etoh, infection. Trending down #Lung nodule: repeat scan in 6 months #Sinusitis: flonase #Restless leg syndrome: requip #Suicidal ideation: evaluated by psych; no longer suicidal #Thrombocytopenia: resolved. Due to Etoh/infection #Diet: regular #DVT ppx: Lovenox #Disp: warrant inpt admission given MRSA bacteremia, IV abx Subjective: no pain, N/V Objective: Vital Signs Temp Pulse Resp BP Pulse Ox 36.9 C 65 16 111/72 94 10/04/16 07:36 10/04/16 07:36 10/04/16 07:36 10/04/16 07:36 10/04/16 07:36 10/03/16 10/04/16 10/05/16 05:59 05:59 05:59 Intake Total 552 2053 Balance 552 2053 PT 14.7 SEC (12.0-15.0) 09/24/16 03:15 INR 1.15 (0.83-1.16) 09/24/16 03:15 - Physical Exam Constitutional: no apparent distress Eyes: PERRL Ears, Nose, Mouth, Throat: moist mucous membranes, hearing normal Cardiovascular: regular rate and rhythym, no murmur, rub, or gallop Respiratory: no respiratory distress, no rales or rhonchi Gastrointestinal: normoactive bowel sounds, soft, non-tender abdomen Genitourinary: no bladder fullness Skin: warm Musculoskeletal: full muscle strength Neurologic: AAOx3, CN II-XII Intact Psychiatric: interacting appropriately ICD10 Worksheet Patient Problems: Problems Problem Status Onset Alcohol withdrawal Acute Alcoholic hepatitis Acute Alcoholic ketoacidosis Acute MRSA (methicillin resistant Staphylococcus aureus) Acute Suicidal ideation Acute Alcohol withdrawal seizure Acute Cellulitis and abscess of hand Acute Metabolic acidosis Acute Pancreatitis Acute
[2016-10-04] MEDS: ENOXAPARIN 40 MG/0.4 ML SYR SC SCH (08:59)
[2016-10-04] MEDS: THIAMINE HCL 100 MG TAB PO SCH (09:00)
[2016-10-04] MEDS: MULTIVITAMINS 1 EACH TAB PO SCH (09:00)
[2016-10-04] MEDS: FOLIC ACID 1 MG TAB PO SCH (09:00)
[2016-10-04 09:05] LABS: ALANINE AMINOTRANSFERASE 110 IU/L (21-72); ALBUMIN 3.9 g/dL (3.5-5.0); ALKALINE PHOSPHATASE 258 IU/L (38-126); ANION GAP 14 mEq/L (8-16); ASPARTATE AMINOTRANSFERASE 122 IU/L (17-59); BILIRUBIN,TOTAL 1.6 mg/dL (0.1-1.4); CALCIUM 9.3 mg/dL (8.5-10.4); CARBON DIOXIDE 22 mEq/l (22-31); CHLORIDE 106 mEq/L (97-110); CREATININE 0.5 mg/dL (0.7-1.3); GLOMERULAR FILTRATION RATE > 60; GLUCOSE 99 mg/dL (70-100); POTASSIUM 4.8 mEq/L (3.5-5.2); SODIUM 142 mEq/L (134-144); TOTAL PROTEIN 8.1 g/dL (6.3-8.2)
[2016-10-04] MEDS: FLUTICASONE NASAL 120 SPRAYS/16 GM MDI EACHNARE SCH (11:23)
[2016-10-04] MEDS: ESCITALOPRAM OXALATE 10 MG TAB PO SCH (11:23)
[2016-10-04] MEDS: NICOTINE 14 MG/24 HR PATCH TD SCH (11:24)
[2016-10-04] MEDS: SODIUM CL NASAL 45 ML BTL EACHNARE SCH (11:24)
--- NOTE | 2016-10-04 17:15 | PCMIDPN ---
Assessment/Plan: Assessment/Plan: * MRSA bacteremia associated with probable right upper extremity superficial thrombophlebitis: Clinically improved with vancomycin therapy. Repeat blood cultures are negative with rapid clearing. Continue vancomycin with reassessment of trough tomorrow. * Increased liver enzymes: Likely alcohol related. 10/04/16 17:12 Subjective: Patient without specific complaints. Right upper extremity phlebitis decreasing. Objective: Vital Signs Temp Pulse Resp BP Pulse Ox 36.8 C 58 L 18 126/80 H 93 10/04/16 17:00 10/04/16 17:00 10/04/16 17:00 10/04/16 17:00 10/04/16 17:00 Laboratory Results 10/04/16 07:58 10/04/16 07:58 10/03/16 10/04/16 10/05/16 05:59 05:59 05:59 Intake Total 552 2053 Balance 552 2053 ESR 78 MM/HR (0-15) H 09/30/16 05:00 Vancomycin # 5 Blood cultures 09/27/201609/19 MRSA Blood cultures 09/30/2016 no growth Laboratory Tests 10/04/16 07:58 Total Bilirubin 1.6 H AST 122 H ALT 110 H Alkaline Phosphatase 258 H - Physical Exam General Appearance: alert, no apparent distress EENT: other (Right-sided conjunctival injection (patient states is chronic)), No conjunctival petechiae Respiratory: lungs clear, No respiratory distress Cardiac/Chest: regular rate, rhythm, No systolic murmur Extremities: inflammation (Mild edema and resolving induration right forearm without palpable fluctuance; minimal tenderness; no overlying cellulitis) Abdomen: non-tender, No distended Skin: No embolic lesions ICD10 Worksheet Patient Problems: Problems Problem Status Onset Alcohol withdrawal Acute Alcoholic hepatitis Acute Alcoholic ketoacidosis Acute MRSA (methicillin resistant Staphylococcus aureus) Acute Suicidal ideation Acute Alcohol withdrawal seizure Acute Cellulitis and abscess of hand Acute Metabolic acidosis Acute Pancreatitis Acute
[2016-10-04] MEDS: traZODone 100 MG TAB PO SCH (21:48)
[2016-10-05] MEDS: SODIUM CL NASAL 45 ML BTL EACHNARE SCH ×3 (00:15→20:17)
[2016-10-05] MEDS: VANCOMYCIN HCL/NORMAL SALINE 250 ML IV SCH ×3 (05:44→20:17)
[2016-10-05] MEDS: ENOXAPARIN 40 MG/0.4 ML SYR SC SCH (09:27)
[2016-10-05] MEDS: NICOTINE 14 MG/24 HR PATCH TD SCH (09:27)
[2016-10-05] MEDS: THIAMINE HCL 100 MG TAB PO SCH (09:28)
[2016-10-05] MEDS: MULTIVITAMINS 1 EACH TAB PO SCH (09:29)
[2016-10-05] MEDS: ESCITALOPRAM OXALATE 10 MG TAB PO SCH (09:29)
[2016-10-05] MEDS: FOLIC ACID 1 MG TAB PO SCH (09:29)
[2016-10-05] MEDS: FLUTICASONE NASAL 120 SPRAYS/16 GM MDI EACHNARE SCH (09:39)
[2016-10-05] MEDS ORDERED: BENZOCAINE (ORAJEL) GEL 11.9GM TUBE TP PRN (16:19)
--- NOTE | 2016-10-05 16:21 | HOSPPROG ---
Hospitalist Progress Note Assessment/Plan: #MRSA bacteremia:(negative bld culture 09/30) suspect due to PIV. Cont IV Vancomycin. Trough 14 #Etoh withdrawal: resolved #Tooth pain: no abscess. Needs to see dentist at [place]. Benzocaine PRN #Aspiration PNA: completed abx # Hyperbilirubinemia: due to Etoh. #Transaminitis: due to Etoh, infection. Trending down #Lung nodule: repeat scan in 6 months #Sinusitis: flonase #Restless leg syndrome: requip #Suicidal ideation: evaluated by psych; no longer suicidal #Thrombocytopenia: resolved. Due to Etoh/infection #Diet: regular #DVT ppx: Lovenox #Disp: warrant inpt admission given MRSA bacteremia, IV abx Subjective: c/o teeth pain Objective: Vital Signs Temp Pulse Resp BP Pulse Ox 36.6 C 63 18 121/72 H 93 10/05/16 08:00 10/05/16 08:00 10/05/16 08:00 10/05/16 08:00 10/05/16 08:00 Laboratory Results 10/04/16 07:58 10/04/16 07:58 10/04/16 10/05/16 10/06/16 05:59 05:59 05:59 Intake Total 2052 3350 Balance 2052 3350 PT 14.7 SEC (12.0-15.0) 09/24/16 03:15 INR 1.15 (0.83-1.16) 09/24/16 03:15 - Physical Exam Constitutional: unkempt Eyes: PERRL Ears, Nose, Mouth, Throat: poor dentition (no erythma or abscess in mouth) Cardiovascular: regular rate and rhythym, no murmur, rub, or gallop Respiratory: no respiratory distress, no rales or rhonchi Gastrointestinal: normoactive bowel sounds Genitourinary: no bladder fullness Skin: warm, other (decreased TTP, erythema right arm PIV site) Musculoskeletal: full muscle strength Neurologic: AAOx3 Psychiatric: interacting appropriately ICD10 Worksheet Patient Problems: Problems Problem Status Onset Alcohol withdrawal Acute Alcoholic hepatitis Acute Alcoholic ketoacidosis Acute MRSA (methicillin resistant Staphylococcus aureus) Acute Suicidal ideation Acute Alcohol withdrawal seizure Acute Cellulitis and abscess of hand Acute Metabolic acidosis Acute Pancreatitis Acute
[2016-10-05] MEDS: traZODone 100 MG TAB PO SCH (20:17)
[2016-10-06] MEDS: VANCOMYCIN HCL/NORMAL SALINE 250 ML IV SCH ×3 (05:35→22:01)
--- NOTE | 2016-10-06 08:50 | HOSPPROG ---
Hospitalist Progress Note Assessment/Plan: #MRSA bacteremia:(negative bld culture 09/30) suspect due to PIV. Cont IV Vancomycin. Trough 14 #Etoh withdrawal: resolved #Tooth pain: no abscess. Needs to see dentist at [place]. Benzocaine PRN #Right forearm thrombophlebitis: warm compresses #Aspiration PNA: completed abx # Hyperbilirubinemia: due to Etoh. #Transaminitis: due to Etoh, infection. Trending down #Lung nodule: repeat scan in 6 months #Sinusitis: flonase #Restless leg syndrome: requip #Suicidal ideation: evaluated by psych; no longer suicidal. Stopped Lexapro, bc he's refuses it #Thrombocytopenia: resolved. Due to Etoh/infection #Diet: regular #DVT ppx: Lovenox #Disp: warrant inpt admission given MRSA bacteremia, IV abx Subjective: denies pain, N/V Objective: Vital Signs Temp Pulse Resp BP Pulse Ox 36.7 C 66 18 115/73 95 10/06/16 08:20 10/06/16 08:20 10/06/16 08:20 10/06/16 08:20 10/06/16 08:20 Microbiology 09/30/16 14:10 Blood Culture - Final Blood 09/30/16 16:40 Blood Culture - Final Blood Laboratory Results 10/04/16 07:58 10/04/16 07:58 10/05/16 10/06/16 10/07/16 05:59 05:59 05:59 Intake Total 3350 2320.5 Balance 3350 2320.5 PT 14.7 SEC (12.0-15.0) 09/24/16 03:15 INR 1.15 (0.83-1.16) 09/24/16 03:15 - Physical Exam Constitutional: no apparent distress Eyes: PERRL Ears, Nose, Mouth, Throat: moist mucous membranes, hearing normal, poor dentition Cardiovascular: regular rate and rhythym, no murmur, rub, or gallop Respiratory: no respiratory distress, no rales or rhonchi Gastrointestinal: normoactive bowel sounds, soft, non-tender abdomen Genitourinary: no bladder fullness Skin: warm, other (right forearm with palpaple cord, no pain or redness ) Musculoskeletal: full muscle strength Neurologic: AAOx3 Psychiatric: interacting appropriately ICD10 Worksheet Patient Problems: Problems Problem Status Onset Alcohol withdrawal Acute Alcoholic hepatitis Acute Alcoholic ketoacidosis Acute MRSA (methicillin resistant Staphylococcus aureus) Acute Suicidal ideation Acute Alcohol withdrawal seizure Acute Cellulitis and abscess of hand Acute Metabolic acidosis Acute Pancreatitis Acute
[2016-10-06] MEDS: FOLIC ACID 1 MG TAB PO SCH (09:30)
[2016-10-06] MEDS: THIAMINE HCL 100 MG TAB PO SCH (09:30)
[2016-10-06] MEDS: MULTIVITAMINS 1 EACH TAB PO SCH (09:30)
[2016-10-06] MEDS: ENOXAPARIN 40 MG/0.4 ML SYR SC SCH (09:30)
[2016-10-06] MEDS: FLUTICASONE NASAL 120 SPRAYS/16 GM MDI EACHNARE SCH (09:47)
[2016-10-06] MEDS: SODIUM CL NASAL 45 ML BTL EACHNARE SCH ×2 (09:47→22:01)
[2016-10-06] MEDS: NICOTINE 14 MG/24 HR PATCH TD SCH (09:47)
--- NOTE | 2016-10-06 15:02 | PCMIDPN ---
Assessment/Plan: Assessment/Plan: * MRSA bacteremia associated with probable right upper extremity superficial thrombophlebitis: Continued clinical improvement with vancomycin therapy. Trough appropriate yesterday. Reassess basic metabolic profile tomorrow. Anticipate therapy through 10/11/2016. * Increased liver enzymes: Likely alcohol related. 10/06/16 14:59 10/06/16 15:02 Subjective: Patient without specific complaints. Right forearm thrombophlebitis with small residual "knot" but no tenderness. Objective: Vital Signs Temp Pulse Resp BP Pulse Ox 36.7 C 66 18 115/73 95 10/06/16 08:20 10/06/16 08:20 10/06/16 08:20 10/06/16 08:20 10/06/16 08:20 Microbiology 09/30/16 14:10 Blood Culture - Final Blood 09/30/16 16:40 Blood Culture - Final Blood Laboratory Results 10/04/16 07:58 10/04/16 07:58 10/05/16 10/06/16 10/07/16 05:59 05:59 05:59 Intake Total 3350 2320.5 Balance 3350 2320.5 ESR 78 MM/HR (0-15) H 09/30/16 05:00 Vancomycin # 7 Blood cultures 09/30/2016 no growth Laboratory Tests 10/05/16 12:20 Vancomycin Trough 14.0 - Physical Exam General Appearance: alert, no apparent distress EENT: No conjunctival petechiae Respiratory: lungs clear, No respiratory distress Cardiac/Chest: regular rate, rhythm, No systolic murmur Extremities: inflammation (Right forearm was small firm cord without erythema or tenderness on lateral aspect) Abdomen: non-tender, No distended ICD10 Worksheet Patient Problems: Problems Problem Status Onset Alcohol withdrawal Acute Alcoholic hepatitis Acute Alcoholic ketoacidosis Acute MRSA (methicillin resistant Staphylococcus aureus) Acute Suicidal ideation Acute Alcohol withdrawal seizure Acute Cellulitis and abscess of hand Acute Metabolic acidosis Acute Pancreatitis Acute
[2016-10-06] MEDS: traZODone 100 MG TAB PO SCH (20:03)
[2016-10-07] MEDS: VANCOMYCIN HCL/NORMAL SALINE 250 ML IV SCH ×3 (06:00→21:24)
[2016-10-07 06:46] LABS: ANION GAP 15 mEq/L (8-16); CALCIUM 10.1 mg/dL (8.5-10.4); CARBON DIOXIDE 20 mEq/l (22-31); CHLORIDE 102 mEq/L (97-110); CREATININE 0.6 mg/dL (0.7-1.3); GLOMERULAR FILTRATION RATE > 60; GLUCOSE 118 mg/dL (70-100); POTASSIUM 4.9 mEq/L (3.5-5.2); SODIUM 137 mEq/L (134-144)
[2016-10-07] MEDS: THIAMINE HCL 100 MG TAB PO SCH (09:22)
[2016-10-07] MEDS: FOLIC ACID 1 MG TAB PO SCH (09:22)
[2016-10-07] MEDS: MULTIVITAMINS 1 EACH TAB PO SCH (09:23)
[2016-10-07] MEDS: ENOXAPARIN 40 MG/0.4 ML SYR SC SCH (09:23)
[2016-10-07] MEDS: SODIUM CL NASAL 45 ML BTL EACHNARE SCH ×2 (09:23→23:35)
[2016-10-07] MEDS: FLUTICASONE NASAL 120 SPRAYS/16 GM MDI EACHNARE SCH (09:23)
[2016-10-07] MEDS: NICOTINE 14 MG/24 HR PATCH TD SCH (09:23)
--- NOTE | 2016-10-07 14:30 | HOSPPROG ---
Hospitalist Progress Note Assessment/Plan: #MRSA bacteremia:(negative bld culture 09/30) suspect due to PIV. Cont IV Vancomycin through 10/11 #Etoh withdrawal: resolved #Tooth pain: no abscess. Needs to see dentist at [place]. Benzocaine PRN #Right forearm thrombophlebitis: warm compresses #Aspiration PNA: completed abx # Hyperbilirubinemia: due to Etoh. #Transaminitis: due to Etoh, infection. CMP in morning #Lung nodule: repeat scan in 6 months #Sinusitis: flonase #Restless leg syndrome: requip #Suicidal ideation: evaluated by psych; no longer suicidal. Stopped Lexapro, bc he's refuses it #Thrombocytopenia: resolved. Due to Etoh/infection #Diet: regular #DVT ppx: Lovenox #Disp: warrant inpt admission given MRSA bacteremia, IV abx Subjective: no acute events Objective: Vital Signs Temp Pulse Resp BP Pulse Ox 36.8 C 91 16 113/76 95 10/07/16 09:28 10/07/16 09:28 10/07/16 09:28 10/07/16 09:28 10/07/16 09:28 Microbiology 09/30/16 14:10 Blood Culture - Final Blood 09/30/16 16:40 Blood Culture - Final Blood Laboratory Results 10/04/16 07:58 10/07/16 06:00 10/06/16 10/07/16 10/08/16 05:59 05:59 05:59 Intake Total 2320.5 1250 Balance 2320.5 1250 PT 14.7 SEC (12.0-15.0) 09/24/16 03:15 INR 1.15 (0.83-1.16) 09/24/16 03:15 - Physical Exam Constitutional: no apparent distress Eyes: PERRL Ears, Nose, Mouth, Throat: poor dentition Cardiovascular: regular rate and rhythym, no murmur, rub, or gallop Respiratory: no respiratory distress Gastrointestinal: normoactive bowel sounds, soft, non-tender abdomen Skin: warm Musculoskeletal: full muscle strength, other (right forearm with palpable cord. no pain/redness) Neurologic: AAOx3, CN II-XII Intact Psychiatric: interacting appropriately ICD10 Worksheet Patient Problems: Problems Problem Status Onset Alcohol withdrawal Acute Alcoholic hepatitis Acute Alcoholic ketoacidosis Acute MRSA (methicillin resistant Staphylococcus aureus) Acute Suicidal ideation Acute Alcohol withdrawal seizure Acute Cellulitis and abscess of hand Acute Metabolic acidosis Acute Pancreatitis Acute
[2016-10-07] MEDS: traZODone 100 MG TAB PO SCH (20:16)
[2016-10-08] MEDS: VANCOMYCIN HCL/NORMAL SALINE 250 ML IV SCH ×3 (05:38→22:25)
[2016-10-08 06:02] LABS: ALANINE AMINOTRANSFERASE 82 IU/L (21-72); ALBUMIN 4.5 g/dL (3.5-5.0); ALKALINE PHOSPHATASE 189 IU/L (38-126); ANION GAP 13 mEq/L (8-16); ASPARTATE AMINOTRANSFERASE 82 IU/L (17-59); BILIRUBIN,TOTAL 1.2 mg/dL (0.1-1.4); CALCIUM 10.3 mg/dL (8.5-10.4); CARBON DIOXIDE 24 mEq/l (22-31); CHLORIDE 103 mEq/L (97-110); CREATININE 0.6 mg/dL (0.7-1.3); GLOMERULAR FILTRATION RATE > 60; GLUCOSE 84 mg/dL (70-100); POTASSIUM 5.2 mEq/L (3.5-5.2); SODIUM 140 mEq/L (134-144); TOTAL PROTEIN 9.1 g/dL (6.3-8.2)
[2016-10-08] MEDS: THIAMINE HCL 100 MG TAB PO SCH (09:39)
[2016-10-08] MEDS: MULTIVITAMINS 1 EACH TAB PO SCH (09:39)
[2016-10-08] MEDS: NICOTINE 14 MG/24 HR PATCH TD SCH (09:40)
[2016-10-08] MEDS: FOLIC ACID 1 MG TAB PO SCH (09:40)
[2016-10-08] MEDS: ENOXAPARIN 40 MG/0.4 ML SYR SC SCH (09:41)
[2016-10-08] MEDS: SODIUM CL NASAL 45 ML BTL EACHNARE SCH ×2 (09:42→22:26)
[2016-10-08] MEDS: FLUTICASONE NASAL 120 SPRAYS/16 GM MDI EACHNARE SCH (09:42)
--- NOTE | 2016-10-08 10:47 | HOSPPROG ---
Hospitalist Progress Note Assessment/Plan: #MRSA bacteremia:(negative bld culture 09/30) suspect due to PIV. Cont IV Vancomycin through 10/11 #Etoh withdrawal: resolved #Tooth pain: no abscess. Needs to see dentist at [place]. Benzocaine PRN #Right forearm thrombophlebitis: warm compresses #Aspiration PNA: completed abx # Hyperbilirubinemia: due to Etoh. #Transaminitis: due to Etoh, infection. CMP in morning #Lung nodule: repeat scan in 6 months #Sinusitis: flonase #Restless leg syndrome: requip #Suicidal ideation: evaluated by psych; no longer suicidal. Stopped Lexapro, bc he's refuses it #Thrombocytopenia: resolved. Due to Etoh/infection #Diet: regular #DVT ppx: Lovenox Subjective: no complaints. eating well Objective: Vital Signs Temp Pulse Resp BP Pulse Ox 36.8 C 84 16 117/72 95 10/08/16 07:56 10/08/16 07:56 10/08/16 07:56 10/08/16 07:56 10/08/16 07:56 Laboratory Results 10/04/16 07:58 10/08/16 05:30 10/07/16 10/08/16 10/09/16 05:59 05:59 05:59 Intake Total 1250 2050 Balance 1250 2050 PT 14.7 SEC (12.0-15.0) 09/24/16 03:15 INR 1.15 (0.83-1.16) 09/24/16 03:15 - Physical Exam Constitutional: no apparent distress, appears nourished Eyes: PERRL, anicteric sclera Ears, Nose, Mouth, Throat: moist mucous membranes, hearing normal Cardiovascular: regular rate and rhythym, no murmur, rub, or gallop Respiratory: no respiratory distress, no rales or rhonchi Gastrointestinal: normoactive bowel sounds, soft, non-tender abdomen Genitourinary: No holley in urethra Skin: warm, other (site of R forearm thrombophlebitis barely noticeable) Musculoskeletal: full muscle strength, no muscle tenderness Neurologic: AAOx3 ICD10 Worksheet Patient Problems: Problems Problem Status Onset Alcohol withdrawal Acute Alcoholic hepatitis Acute Alcoholic ketoacidosis Acute MRSA (methicillin resistant Staphylococcus aureus) Acute Suicidal ideation Acute Alcohol withdrawal seizure Acute Cellulitis and abscess of hand Acute Metabolic acidosis Acute Pancreatitis Acute
--- NOTE | 2016-10-08 14:03 | PCMIDPN ---
Assessment/Plan: Assessment/Plan: 1. MRSA Bacteremia secondary to superficial thrombophlebitis. : - KELLY=1 -f/u blood cx from 09/30 ngtd -Currently on Vanco. -Creatinine stable. vanco trough 14 on 10/05/16. -Continue atbx as outlined in previous noted til 10/11/16. meds vanco 1g q8- Subjective: Afebrile. FEels better each day. No further pain involving his right forearm. Denies sob, abd pain or diarrhea. Objective: Vital Signs Temp Pulse Resp BP Pulse Ox 36.8 C 84 16 117/72 95 10/08/16 07:56 10/08/16 07:56 10/08/16 07:56 10/08/16 07:56 10/08/16 07:56 Laboratory Results 10/04/16 07:58 10/08/16 05:30 10/07/16 10/08/16 10/09/16 05:59 05:59 05:59 Intake Total 1250 2050 Balance 1250 2050 ESR 78 MM/HR (0-15) H 09/30/16 05:00 - Physical Exam General Appearance: alert, no apparent distress Respiratory: lungs clear Cardiac/Chest: regular rate, rhythm Extremities: other (one spot area of induration on right forearm. no erythema. nontender to palpation.) Abdomen: normal bowel sounds, non-tender, soft, No distended Skin: No erythema ICD10 Worksheet Patient Problems: Problems Problem Status Onset Alcohol withdrawal Acute Alcoholic hepatitis Acute Alcoholic ketoacidosis Acute MRSA (methicillin resistant Staphylococcus aureus) Acute Suicidal ideation Acute Alcohol withdrawal seizure Acute Cellulitis and abscess of hand Acute Metabolic acidosis Acute Pancreatitis Acute
[2016-10-08] MEDS: traZODone 100 MG TAB PO SCH (22:26)
[2016-10-09] MEDS: VANCOMYCIN HCL/NORMAL SALINE 250 ML IV SCH ×3 (05:50→21:08)
[2016-10-09] MEDS: THIAMINE HCL 100 MG TAB PO SCH (08:49)
[2016-10-09] MEDS: MULTIVITAMINS 1 EACH TAB PO SCH (08:49)
[2016-10-09] MEDS: FOLIC ACID 1 MG TAB PO SCH (08:49)
[2016-10-09] MEDS: ENOXAPARIN 40 MG/0.4 ML SYR SC SCH (08:49)
[2016-10-09] MEDS: SODIUM CL NASAL 45 ML BTL EACHNARE SCH ×2 (08:50→21:12)
[2016-10-09] MEDS: NICOTINE 14 MG/24 HR PATCH TD SCH (08:50)
[2016-10-09] MEDS: FLUTICASONE NASAL 120 SPRAYS/16 GM MDI EACHNARE SCH (08:50)
--- NOTE | 2016-10-09 10:08 | HOSPPROG ---
Hospitalist Progress Note Assessment/Plan: #MRSA bacteremia:(negative bld culture 09/30) suspect due to PIV. Cont IV Vancomycin through 10/11 #Etoh withdrawal: resolved #Tooth pain: no abscess. Needs to see dentist at [place]. Benzocaine PRN #Right forearm thrombophlebitis: warm compresses #Aspiration PNA: completed abx # Hyperbilirubinemia: due to Etoh. #Transaminitis: due to Etoh, infection. CMP in morning #Lung nodule: repeat scan in 6 months #Sinusitis: flonase #Restless leg syndrome: requip #Suicidal ideation: evaluated by psych; no longer suicidal. Stopped Lexapro, bc he's refuses it #Thrombocytopenia: resolved. Due to Etoh/infection #Diet: regular #DVT ppx: Lovenox Subjective: sleeping poorly Objective: Vital Signs Temp Pulse Resp BP Pulse Ox 36.8 C 77 18 133/74 H 91 L 10/09/16 07:40 10/09/16 07:40 10/09/16 07:40 10/09/16 07:40 10/09/16 07:40 Laboratory Results 10/04/16 07:58 10/08/16 05:30 10/08/16 10/09/16 10/10/16 05:59 05:59 05:59 Intake Total 2049 125 Balance 2049 125 PT 14.7 SEC (12.0-15.0) 09/24/16 03:15 INR 1.15 (0.83-1.16) 09/24/16 03:15 - Physical Exam Constitutional: no apparent distress, appears nourished Eyes: PERRL, anicteric sclera Ears, Nose, Mouth, Throat: moist mucous membranes, hearing normal, ears appear normal Cardiovascular: regular rate and rhythym, no murmur, rub, or gallop Respiratory: no respiratory distress, no rales or rhonchi Gastrointestinal: normoactive bowel sounds, soft, non-tender abdomen, no palpable masses Genitourinary: holley in urethra Skin: warm, normal color, other (RUE site of thrombophlebitis) Musculoskeletal: full muscle strength Neurologic: AAOx3 Psychiatric: interacting appropriately ICD10 Worksheet Patient Problems: Problems Problem Status Onset Alcohol withdrawal Acute Alcoholic hepatitis Acute Alcoholic ketoacidosis Acute MRSA (methicillin resistant Staphylococcus aureus) Acute Suicidal ideation Acute Alcohol withdrawal seizure Acute Cellulitis and abscess of hand Acute Metabolic acidosis Acute Pancreatitis Acute
[2016-10-09] MEDS: traZODone 100 MG TAB PO SCH (21:08)
[2016-10-10] MEDS: VANCOMYCIN HCL/NORMAL SALINE 250 ML IV SCH ×3 (05:38→21:13)
[2016-10-10 06:03] LABS: % IMMATURE GRANULYOCYTES 0.4 % (0.0-1.1); ABSOLUTE IMMATURE GRANULOCYTES 0.03 10^3/uL (0.00-0.10); ADD DIFF? NO; ADD MORPH? NO; ADD SCAN? NO; ATYPICAL LYMPHOCYTE FLAG 20 (0-99); FRAGMENT RBC FLAG 0 (0-99); HEMATOCRIT 40.2 % (40.0-51.0); LEFT SHIFT FLG 0 (0-99); LIPEMIA HEMOLYSIS FLAG 80 (0-99); MEAN CELL HEMOGLOBIN 33.4 pg (27.9-34.1); MEAN CELL HEMOGLOBIN CONCENTR. 32.3 g/dL (32.4-36.7); MEAN CELL VOLUME 103.3 fL (81.5-99.8); MEAN PLATELET VOLUME 10.1 fL (8.7-11.7); PLATELET CLUMPS FLAG 10 (0-99); PLATELET COUNT 364 10^3/uL (150-400); RED BLOOD CELL COUNT 3.89 10^6/uL (4.40-6.38)
[2016-10-10 06:24] LABS: ANION GAP 14 mEq/L (8-16); CALCIUM 10.2 mg/dL (8.5-10.4); CARBON DIOXIDE 22 mEq/l (22-31); CHLORIDE 104 mEq/L (97-110); CREATININE 0.6 mg/dL (0.7-1.3); GLOMERULAR FILTRATION RATE > 60; GLUCOSE 127 mg/dL (70-100); POTASSIUM 4.7 mEq/L (3.5-5.2); SODIUM 140 mEq/L (134-144)
--- NOTE | 2016-10-10 09:10 | HOSPPROG ---
Hospitalist Progress Note Assessment/Plan: #MRSA bacteremia:(negative bld culture 09/30) suspect due to PIV. Cont IV Vancomycin through 10/11 #Etoh withdrawal: resolved #Tooth pain: no abscess. Needs to see dentist at [place]. Benzocaine PRN #Right forearm thrombophlebitis: warm compresses #Aspiration PNA: completed abx # Hyperbilirubinemia: due to Etoh. #Transaminitis: due to Etoh, infection. CMP in morning #Lung nodule: repeat scan in 6 months #Sinusitis: flonase #Restless leg syndrome: requip #Suicidal ideation: evaluated by psych; no longer suicidal. Stopped Lexapro, bc he's refuses it #Thrombocytopenia: resolved. Due to Etoh/infection #Diet: regular #DVT ppx: Lovenox Subjective: no complaints Objective: Vital Signs Temp Pulse Resp BP Pulse Ox 37.1 C 74 16 120/74 96 10/10/16 07:43 10/10/16 07:43 10/10/16 07:43 10/10/16 07:43 10/10/16 07:43 Laboratory Results 10/10/16 05:34 10/10/16 05:34 10/09/16 10/10/16 10/11/16 05:59 05:59 05:59 Intake Total 1250 1560 350 Balance 1250 1560 350 PT 14.7 SEC (12.0-15.0) 09/24/16 03:15 INR 1.15 (0.83-1.16) 09/24/16 03:15 - Physical Exam Constitutional: no apparent distress, appears nourished Eyes: PERRL, anicteric sclera Ears, Nose, Mouth, Throat: moist mucous membranes, hearing normal Cardiovascular: regular rate and rhythym, no murmur, rub, or gallop Respiratory: no respiratory distress, no rales or rhonchi Gastrointestinal: normoactive bowel sounds, soft, non-tender abdomen Genitourinary: No holley in urethra Skin: warm, normal color Musculoskeletal: other (forearm nodule small, non tender) Neurologic: AAOx3, sensation intact bilaterally Psychiatric: interacting appropriately, not anxious Lymph, Heme, Immunologic: no cervical LAD ICD10 Worksheet Patient Problems: Problems Problem Status Onset Alcohol withdrawal Acute Alcoholic hepatitis Acute Alcoholic ketoacidosis Acute MRSA (methicillin resistant Staphylococcus aureus) Acute Suicidal ideation Acute Alcohol withdrawal seizure Acute Cellulitis and abscess of hand Acute Metabolic acidosis Acute Pancreatitis Acute
[2016-10-10] MEDS: ENOXAPARIN 40 MG/0.4 ML SYR SC SCH (10:03)
[2016-10-10] MEDS: MULTIVITAMINS 1 EACH TAB PO SCH (10:04)
[2016-10-10] MEDS: THIAMINE HCL 100 MG TAB PO SCH (10:05)
[2016-10-10] MEDS: NICOTINE 14 MG/24 HR PATCH TD SCH (10:05)
[2016-10-10] MEDS: FOLIC ACID 1 MG TAB PO SCH (10:05)
[2016-10-10] MEDS: SODIUM CL NASAL 45 ML BTL EACHNARE SCH ×2 (10:07→21:14)
[2016-10-10] MEDS: FLUTICASONE NASAL 120 SPRAYS/16 GM MDI EACHNARE SCH (10:07)
[2016-10-10] MEDS: traZODone 100 MG TAB PO SCH (21:13)
[2016-10-11] MEDS: VANCOMYCIN HCL/NORMAL SALINE 250 ML IV SCH ×2 (06:18→13:10)
[2016-10-11 06:21] VITALS: TEMP 97.8
[2016-10-11 07:43] VITALS: BP 116/72; PULSE 82; RESP 18; O2SAT 96
[2016-10-11] MEDS: MULTIVITAMINS 1 EACH TAB PO SCH (08:48)
[2016-10-11] MEDS: FOLIC ACID 1 MG TAB PO SCH (08:48)
[2016-10-11] MEDS: THIAMINE HCL 100 MG TAB PO SCH (08:48)
[2016-10-11] MEDS: ENOXAPARIN 40 MG/0.4 ML SYR SC SCH (08:49)
--- NOTE | 2016-10-11 10:00 | HOSPPROG ---
Hospitalist Progress Note Assessment/Plan: #MRSA bacteremia:(negative bld culture 09/30) suspect due to PIV. Cont IV Vancomycin through 10/11 #Etoh withdrawal: resolved #Tooth pain: no abscess. Needs to see dentist at [place]. Benzocaine PRN #Right forearm thrombophlebitis: warm compresses #Aspiration PNA: completed abx # Hyperbilirubinemia: due to Etoh. #Transaminitis: due to Etoh, infection. CMP in morning #Lung nodule: repeat scan in 6 months #Sinusitis: flonase #Restless leg syndrome: requip #Suicidal ideation: evaluated by psych; no longer suicidal. Stopped Lexapro, bc he's refuses it #Thrombocytopenia: resolved. Due to Etoh/infection #Diet: regular #DVT ppx: Lovenox home today > 30 minutes. Subjective: completed abx Objective: Vital Signs Temp Pulse Resp BP Pulse Ox 36.6 C 82 18 116/72 96 10/11/16 07:41 10/11/16 07:41 10/11/16 07:41 10/11/16 07:41 10/11/16 07:41 Laboratory Results 10/10/16 05:34 10/10/16 05:34 10/10/16 10/11/16 10/12/16 05:59 05:59 05:59 Intake Total 1560 3786 Balance 1560 3786 PT 14.7 SEC (12.0-15.0) 09/24/16 03:15 INR 1.15 (0.83-1.16) 09/24/16 03:15 - Physical Exam Constitutional: no apparent distress, appears nourished Eyes: PERRL, anicteric sclera Ears, Nose, Mouth, Throat: moist mucous membranes, hearing normal Cardiovascular: regular rate and rhythym, no murmur, rub, or gallop Respiratory: no respiratory distress, no rales or rhonchi Gastrointestinal: normoactive bowel sounds, soft, non-tender abdomen Genitourinary: No holley in urethra Skin: warm, normal color Musculoskeletal: full muscle strength, no muscle tenderness Neurologic: AAOx3 Psychiatric: interacting appropriately ICD10 Worksheet Patient Problems: Problems Problem Status Onset Alcohol withdrawal Acute Alcoholic hepatitis Acute Alcoholic ketoacidosis Acute MRSA (methicillin resistant Staphylococcus aureus) Acute Suicidal ideation Acute Alcohol withdrawal seizure Acute Cellulitis and abscess of hand Acute Metabolic acidosis Acute Pancreatitis Acute
[2016-10-11] MEDS: NICOTINE 14 MG/24 HR PATCH TD SCH (10:10)
[2016-10-11] MEDS: FLUTICASONE NASAL 120 SPRAYS/16 GM MDI EACHNARE SCH (10:10)
[2016-10-11] MEDS: SODIUM CL NASAL 45 ML BTL EACHNARE SCH (10:10)
--- NOTE | 2016-10-11 10:29 | GDS ---
DISCHARGE DIAGNOSES: 1. Suicide ideations with alcohol withdrawal. 2. Thrombophlebitis. 3. Staphylococcus aureus bacteremia, uncomplicated, status post 2 weeks of vancomycin. This was me thicillin-resistant Staphylococcus aureus. 4. Thrombocytopenia, resolved. 5. Alcoholic hepatitis, resolved. HOSPITAL COURSE: Please see admission history and physical by Dr. Lita Corcoran. The patient w as admitted with suicidal ideation and found to be in alcohol withdrawal and subsequently became sep. Blood culture grew out MRSA, which was felt to be secondary to thrombophlebitis in the right forearm and did not require surgical management. This has resolved and he received 2 weeks of IV an tibiotics under the guidance of Infectious Disease. Blood cultures have been cleared. The patient is discharged home on medication, ropinirole, but otherwise no medications. He was prov ided with a small amount of clothes given his homeless status. /[id number]/MODL
--- NOTE | 2016-10-15 12:58 | PQFORM ---
PHYSICIAN QUERY FORM Needs Your Response This query form is being sent to you to assure this patient record is coded properly. Please respond to the question below: AUTOMOTIVE PROJECT ENGINEER QUESTION: Dear Dr. Milan, In reviewing this patients medical record it is documented in Dr. Ruiz's 09/29 consult the patient has a diagnosis of 'Pneumonia'. Documented in the Hospitalist progress notes dated 09/29-10/11 the patient has the diagnosis of ' Aspiration pneumonia w/ acute respiratory failure.' Documented in the Glue Mill Operator progress notes dated 09/30 the patient had the diagnosis of 'Basilar pneumonia, possibly aspiration.' Documented in the Infectious disease progress notes dated 10/01-10/02 and the chest x-ray patient was diagnosed with 'left lower lobe infiltrate. After study, should the diagnosis of 'Aspiration Pneumonia' be included in the discharge summary? ____X___ Yes No Other more appropriate diagnosis Unable to determine Thank you JUSTA Valdez [facility]/Coding Dept. [phone] INSTRUCTIONS FOR RESPONSE: Answer question by clicking on the "Edit Document" button. Move cursor to area below the stars. When complete, hit "Save." Click on the "Sign" button, then click "Sign" again. Type in your PIN and hit "Enter." MTDD
--- NOTE | 2016-10-15 13:07 | PQFORM ---
PHYSICIAN QUERY FORM Needs Your Response This query form is being sent to you to assure this patient record is coded properly. Please respond to the question below: POWER AND RECOVERY SUPERVISOR QUESTION: Dear Dr. Milan, In reviewing this patient medical record patient reports 'moderate abdominal pain along with some nausea'. Documented in the Auto Parts Manager progress note dated 09/28-10/02 patient had the diagnosis of 'Chronic pancreatitis'. The 09/[address] reports 'chronic pancreatitis.' In the Hospitalist progress notes dated 09/28-09/30 patient diagnosed with 'Etoh pancreatitis-smoldering.' After study, should the diagnosis of 'Alcohol-induced Chronic Pancreatitis' be included in the discharge summary? ___X___ Yes No Other more appropriate diagnosis Unable to determine Thank you JUSTA Valdez [facility]/Coding Dept. [phone] INSTRUCTIONS FOR RESPONSE: Answer question by clicking on the "Edit Document" button. Move cursor to area below the stars. When complete, hit "Save." Click on the "Sign" button, then click "Sign" again. Type in your PIN and hit "Enter." MTDD
== END 2016-10-11 16:22 | disposition home or self-care (01) | DRG 896 ==
LOC: EDUNIT# → EEVIPCON 21:43 → OBSVTOIN 22:44 → F2N 23:41 → F2W 09-30 18:30 → F1N 10-01 20:47
PROVIDERS: ADMIT Internal Medicine; ATTEND Internal Medicine
DX: F10.239 Alcohol dependence with withdrawal, unspecified (principal); J69.0 Pneumonitis due to inhalation of food and vomit; R45.851 Suicidal ideations; E87.2 Acidosis; F33.9 Major depressive disorder, recurrent, unspecified; K86.0 Alcohol-induced chronic pancreatitis; I80.9 Phlebitis and thrombophlebitis of unspecified site; B95.62 Methicillin resistant Staphylococcus aureus infection as the cause of diseases classified elsewhere; D69.59 Other secondary thrombocytopenia; K70.10 Alcoholic hepatitis without ascites; F43.10 Post-traumatic stress disorder, unspecified; J01.40 Acute pansinusitis, unspecified; E83.51 Hypocalcemia; E83.39 Other disorders of phosphorus metabolism; E83.42 Hypomagnesemia; D64.9 Anemia, unspecified; Y90.8 Blood alcohol level of 240 mg/100 ml or more; Z72.0 Tobacco use; Z59.0 Homelessness; Z23 Encounter for immunization
CPT/HCPCS: 80305; 92507-GN; 92523-GN; 96374; 97116-GP; 97162-GP; 97165-GO; 97530-GP; 97535-GO; G0008; G0009; G0480; G8978-GP-CK; G8979-GP-CI; J0610; J1335; J1650; J2405; J3370; J3475; Q9967